=== PATIENT | male | born 1975 | race Caucasian/White ===

== ENCOUNTER 2016-12-06 09:31 | Emergency (ER) | payer MEDICAID ==
[2016-12-06 09:38] VITALS: TEMP 98.6
[2016-12-06] MEDS ORDERED: NS 1,000 ML IV ONE ×2 (09:54→11:28)
[2016-12-06 10:12] LABS: % IMMATURE GRANULYOCYTES 0.6 % (0.0-1.1); ABSOLUTE IMMATURE GRANULOCYTES 0.02 10^3/uL (0.00-0.10); ABSOLUTE NRBC COUNT 0.02 10^3/uL (0-0.01); ADD DIFF? NO; ADD MORPH? NO; ADD SCAN? NO; ATYPICAL LYMPHOCYTE FLAG 0 (0-99); FRAGMENT RBC FLAG 0 (0-99); HEMOGLOBIN 13.2 g/dL (13.7-17.5); LEFT SHIFT FLG 0 (0-99); LIPEMIA HEMOLYSIS FLAG 90 (0-99); MEAN CELL HEMOGLOBIN 37.4 pg (27.9-34.1); MEAN CELL HEMOGLOBIN CONCENTR. 35.7 g/dL (32.4-36.7); MEAN CELL VOLUME 104.8 fL (81.5-99.8); MEAN PLATELET VOLUME 9.3 fL (8.7-11.7); NRBC-AUTO% 0.6 % (0.0-0.2); PLATELET CLUMPS FLAG 0 (0-99); PLATELET COUNT 161 10^3/uL (150-400); RED BLOOD CELL COUNT 3.53 10^6/uL (4.40-6.38); RED CELL DISTRIBUTION WIDTH 13.2 % (11.5-15.2)
--- NOTE | 2016-12-06 10:14 | CPEKG ---
Heart Rate: 91 RR Interval: 659 P-R Interval: 160 QRSD Interval: 88 QT Interval: 364 QTC Interval: 448 P [place]: 44 QRS [place]: 26 T Wave [place]: 36 EKG Severity - ABNORMAL ECG - EKG Impression: SINUS RHYTHM EKG Impression: CONSIDER LEFT VENTRICULAR HYPERTROPHY Electronically Signed By: Ambrosio Jones 06-Dec-2016 13:00:54
--- NOTE | 2016-12-06 10:17 | EDPHY ---
General Narrative: CHIEF COMPLAINT: Multiple complaints HISTORY OF PRESENT ILLNESS: Patient complains of weakness, loss of appetite, shakiness, fatigue, body aches , nausea, cough, runny nose, emotional lability. The symptoms have been present for nearly 2 months. They have been constant duration. He occasionally becomes very aggravated her agitated for no reason. He then becomes tearful. There are no predictable modifying factors for this. He is only attempted Aleve [id number] without improvement. He has had no chest pain. He has had no abdominal pain but he has had some diarrhea. He says that he knows something is wrong. He has not yet been evaluated by anyone. He has no primary care physician. He denies any other significant medical history. No other associated complaints or modifying factors. REVIEW OF SYSTEMS: Ten systems reviewed and are negative unless otherwise noted in the HPI PCP: Currently none SPECIALISTS: Currently none PAST MEDICAL HISTORY: Orthopedic injuries PAST SURGICAL HISTORY: Right metatarsal surgery 2005 SOCIAL HISTORY: One pack per day smoker. Occasional alcohol. Marijuana user FAMILY HISTORY: Noncontributory EXAMINATION General Appearance: Alert, no distress, unkempt Head: normocephalic, atraumatic Eyes: Pupils equal and round, no conjunctival pallor or injection. EOMs intact. ENT, Mouth: edentulous. Mucous membranes mildly dry. Airway is widely patent with midline uvula. No erythema or edema Neck: Normal inspection, supple, non-tender Respiratory: Mild scattered rhonchi. No wheezing. No crackles. No diminishment. No retractions or distress Cardiovascular: Tachycardic rate and regular rhythm. No murmur. Good signs of perfusion distally. Gastrointestinal: Abdomen is soft and nontender no tenderness. No tympany Back: non-tender, no bony abnormalities Neurological: Mild resting tremor. GCS 15. A&O, nonfocal, strength is symmetric in all 4 limbs. Steady gait. Skin: Warm and dry, no rash. No petechiae or purpura Extremities: Nontender, no pedal edema Psychiatric: Mood and affect normal DIFFERENTIAL DIAGNOSES: Including but not limited to pneumonia, dehydration, acute kidney injury, rhabdomyolysis, weakness, demyelinating disease MDM: 9:55 a.m. Multiple vague complaints with no specific finding on examination. He is mildly tachycardic but not hypoxic, not tachypneic, and not hypotensive. He does not meet SIRS criteria. I have ordered laboratory studies, IV fluid, EKG and chest x-ray. He is in no acute distress 11:00 a.m. Multiple minor laboratory abnormalities without any significant, emergent concern. Due to the tremor, weakness and reported emotional lability, I have ordered CT scan of the head to rule out intracranial mass. 11:30 a.m. Contacted by radiologist Dr. Duncan. CT scan of the head reveals atrophy but no acute findings. 11:50 p.m. Multiple minor laboratory abnormalities consistent with alcohol abuse. I have re-evaluated the patient and discussed this with him. He now admits to at least a six-pack a day of alcohol. He is resting comfortably in no acute distress. He does have a mild resting tremor but no evidence of delirium tremens. I recommended daily multi-vitamin have also recommended that the patient be evaluated by case minute to assure that he could follow-up. I do know that he warranted mid the hospital time. Dr. Jones agrees with this plan. Discharged home with instructions to take it daily multi vitamin, increase fluid intake, increase fluid intake, follow up care physician and discussed out cessation in a safe manner. Precautions discussed he and his significant other comfortable this plan. 12:05 p.m. Patient has been visited by catalytic case operator at all. She is attempting to kick in a [facility] for him. 12:20 p.m. Patient has an appointment at 11:00 a.m. at [facility] for follow-up. He is comfortable this plan. He is discharged home stable condition with instructions to follow up with that appointment. ED precautions for worsening symptoms, chest pain. He has a spouse are comfortable this plan. - Diagnostics Imaging Results: Imaging Impressions Chest X-Ray 12/06/16 09:55 Impression: No acute cardiopulmonary features. Head CT 12/06/16 10:58 Impression: Diffuse cortical atrophy. I telephoned results to Jens Josue at 1125 hours. - History Smoking Status: Current every day smoker - Objective Vital Signs: Initial Vital Signs Temperature (C) 98.6 F 12/06/16 09:33 Heart Rate 112 H 12/06/16 09:33 Respiratory Rate 18 12/06/16 09:33 Blood Pressure 149/108 H 12/06/16 09:33 O2 Sat (%) 96 12/06/16 09:33 O2 Delivery Mode Room Air Allergies/Adverse Reactions: No Known Allergies Allergy (Verified 07/28/15 14:45) Home Medications: Medication Instructions Recorded NK [No Known Home Meds] 12/06/16 Laboratory Results: Laboratory Results 12/06/16 10:00 12/06/16 10:00 12/06/16 12/06/16 12/06/16 11:00 10:00 10:00 WBC RBC Hgb Hct MCV MCH MCHC RDW Plt Count MPV Neut % (Auto) Lymph % (Auto) [place] % (Auto) Eos % (Auto) Baso % (Auto) Nucleat RBC Rel Count Absolute Neuts (auto) Absolute Lymphs (auto) Absolute Monos (auto) Absolute Eos (auto) Absolute Basos (auto) Absolute Nucleated RBC Immature Gran % Immature Gran # ESR PT INR APTT Sodium Potassium Chloride Carbon Dioxide Anion Gap BUN Creatinine Estimated GFR Glucose Calcium Total Bilirubin Conjugated Bilirubin Unconjugated Bilirubin AST ALT Alkaline Phosphatase Creatine Kinase CK-MB (CK-2) Fraction CK-MB (CK-2) % Creatine Kinase Interp Troponin I C-Reactive Protein Total Protein Albumin Lipase TSH 1.630 uIU/mL uIU/mL (0.465-4.680) Urine Color YELLOW Urine Appearance CLEAR Urine pH 7.0 (5.0-7.5) Ur Specific [place] 1.020 (1.002-1.030) Urine Protein 1+ H (NEGATIVE) Urine Ketones NEGATIVE (NEGATIVE) Urine Blood NEGATIVE (NEGATIVE) Urine Nitrate NEGATIVE (NEGATIVE) Urine Bilirubin NEGATIVE (NEGATIVE) Urine Urobilinogen NEGATIVE EU EU (0.2-1.0) Ur Leukocyte Esterase NEGATIVE (NEGATIVE) Urine RBC 1-3 /hpf /hpf (0-3) Urine WBC 1-3 /hpf /hpf (0-3) Ur Epithelial Cells Not Reported Urine Mucus TRACE /lpf /lpf (NONE-1+) Urine Glucose NEGATIVE (NEGATIVE) Nasal Influenza A PCR NEGATIVE FOR FLU A (NEGATIVE) Nasal Influenza B PCR NEGATIVE FOR FLU B (NEGATIVE) Urine Opiates Screen NEGATIVE (NEGATIVE) Urine Barbiturates NEGATIVE (NEGATIVE) Ur Phencyclidine Scrn NEGATIVE (NEGATIVE) Ur Amphetamine Screen NEGATIVE (NEGATIVE) U Benzodiazepines Scrn NEGATIVE (NEGATIVE) Urine Cocaine Screen NEGATIVE (NEGATIVE) U Marijuana (THC) Screen NON-NEGATIVE H (NEGATIVE) 10/13/17 10/13/17 10/13/17 10:00 10:00 10:00 WBC 3.27 10^3/uL L 10^3/uL (3.80-9.50) RBC 3.53 10^6/uL L 10^6/uL (4.40-6.38) Hgb 13.2 g/dL L g/dL (13.7-17.5) Hct 37.0 % L % (40.0-51.0) MCV 104.8 fL H fL (81.5-99.8) MCH 37.4 pg H pg (27.9-34.1) MCHC 35.7 g/dL g/dL (32.4-36.7) RDW 13.2 % % (11.5-15.2) Plt Count 161 10^3/uL 10^3/uL (150-400) MPV 9.3 fL fL (8.7-11.7) Neut % (Auto) 39.2 % L % (39.3-74.2) Lymph % (Auto) 46.8 % H % (15.0-45.0) Town[place] % (Auto) 11.6 % % (4.5-13.0) Eos % (Auto) 0.3 % L % (0.6-7.6) Baso % (Auto) 1.5 % % (0.3-1.7) Nucleat RBC Rel Count 0.6 % H % (0.0-0.2) Absolute Neuts (auto) 1.28 10^3/uL L 10^3/uL (1.70-6.50) Absolute Lymphs (auto) 1.53 10^3/uL 10^3/uL (1.00-3.00) Absolute Monos (auto) 0.38 10^3/uL 10^3/uL (0.30-0.80) Absolute Eos (auto) 0.01 10^3/uL L 10^3/uL (0.03-0.40) Absolute Basos (auto) 0.05 10^3/uL 10^3/uL (0.02-0.10) Absolute Nucleated RBC 0.02 10^3/uL H 10^3/uL (0-0.01) Immature Gran % 0.6 % % (0.0-1.1) Immature Gran # 0.02 10^3/uL 10^3/uL (0.00-0.10) ESR 38 MM/HR H MM/HR (0-15) PT 13.9 SEC SEC (12.0-15.0) INR 1.08 (0.83-1.16) APTT 30.7 SEC SEC (23.0-38.0) Sodium 144 mEq/L mEq/L (134-144) Potassium 4.1 mEq/L mEq/L (3.5-5.2) Chloride 104 mEq/L mEq/L (97-110) Carbon Dioxide 23 mEq/l mEq/l (22-31) Anion Gap 17 mEq/L H mEq/L (8-16) BUN 6 mg/dL L mg/dL (7-23) Creatinine 0.5 mg/dL L mg/dL (0.7-1.3) Estimated GFR > 60 Glucose 94 mg/dL mg/dL (70-100) Calcium 9.3 mg/dL mg/dL (8.5-10.4) Total Bilirubin 0.4 mg/dL mg/dL (0.1-1.4) Conjugated Bilirubin 0.3 mg/dL mg/dL (0.0-0.5) Unconjugated Bilirubin 0.1 mg/dL mg/dL (0.0-1.1) AST 114 IU/L H IU/L (17-59) ALT 55 IU/L IU/L (21-72) Alkaline Phosphatase 141 IU/L H IU/L (38-126) Creatine Kinase 400 IU/L H IU/L (0-224) CK-MB (CK-2) Fraction 2.11 ng/mL ng/mL (0.00-3.19) CK-MB (CK-2) % 0.5 % % (0.0-4.0) Creatine Kinase Interp NEGATIVE (NEGATIVE) Troponin I < 0.012 ng/mL ng/mL (0.000-0.034) C-Reactive Protein 17.6 mg/L H mg/L (<10.0) Total Protein 7.6 g/dL g/dL (6.3-8.2) Albumin 4.2 g/dL g/dL (3.5-5.0) Lipase 133 IU/L IU/L (23-300) TSH Urine Color Urine Appearance Urine pH Ur Specific [place] Urine Protein Urine Ketones Urine Blood Urine Nitrate Urine Bilirubin Urine Urobilinogen Ur Leukocyte Esterase Urine RBC Urine WBC Ur Epithelial Cells Urine Mucus Urine Glucose Nasal Influenza A PCR Nasal Influenza B PCR Urine Opiates Screen Urine Barbiturates Ur Phencyclidine Scrn Ur Amphetamine Screen U Benzodiazepines Scrn Urine Cocaine Screen U Marijuana (THC) Screen Medications Given: Discontinued Medications Sodium Chloride (Ns) 1,000 mls @ 0 mls/hr IV ONCE ONE; Wide Open PRN Reason: Protocol Stop: 12/06/16 09:55 Last Admin: 12/06/16 10:02 Dose: 1,000 mls Sodium Chloride (Ns) 1,000 mls @ 0 mls/hr IV ONCE ONE; Wide Open PRN Reason: Protocol Stop: 12/06/16 11:29 Last Admin: 12/06/16 11:31 Dose: 1,000 mls Departure - Departure Disposition: Home, Routine, Self-Care Clinical Impression: Chronic anemia Alcohol dependence Qualifiers: Substance use status: with intoxication Complication of substance-induced condition: with unspecified complication Qualified Code(s): F10.229 - Alcohol dependence with intoxication, unspecified Condition: Good Instructions: Abuse of Alcohol (ED), At-Risk Alcohol Use (ED), Anemia (ED), Alcohol Dependence (ED) Additional Instructions: Case Management: You have an appointment with [facility] on December 09 at 11: 10 AM. Please be on time. The [address] [address] Referrals: NONE *PRIMARY CARE P,. [Primary Care Provider] - As per Instructions [facility],. [Clinic] - As per Instructions David Yu MD [Medical Doctor] - As per Instructions
[2016-12-06 10:21] LABS: INR 1.08 (0.83-1.16); PROTIME(PATIENT) 13.9 SEC (12.0-15.0)
[2016-12-06 10:22] VITALS: O2SAT 95
[2016-12-06 10:24] LABS: ALANINE AMINOTRANSFERASE 55 IU/L (21-72); ALBUMIN 4.2 g/dL (3.5-5.0); ALKALINE PHOSPHATASE 141 IU/L (38-126); ANION GAP 17 mEq/L (8-16); ASPARTATE AMINOTRANSFERASE 114 IU/L (17-59); BILIRUBIN,TOTAL 0.4 mg/dL (0.1-1.4); BILIRUBIN-CONJUGATED 0.3 mg/dL (0.0-0.5); BILIRUBIN-UNCONJUGATED 0.1 mg/dL (0.0-1.1); C-REACTIVE PROTEIN 17.6 mg/L (<10.0); CALCIUM 9.3 mg/dL (8.5-10.4); CARBON DIOXIDE 23 mEq/l (22-31); CHLORIDE 104 mEq/L (97-110); CREATININE 0.5 mg/dL (0.7-1.3); GLOMERULAR FILTRATION RATE > 60; GLUCOSE 94 mg/dL (70-100); POTASSIUM 4.1 mEq/L (3.5-5.2); SEDIMENTATION RATE 38 MM/HR (0-15); SODIUM 144 mEq/L (134-144); TOTAL PROTEIN 7.6 g/dL (6.3-8.2)
[2016-12-06 10:27] LABS: APTT 30.7 SEC (23.0-38.0)
[2016-12-06 10:33] LABS: TROPONIN I < 0.012 ng/mL (0.000-0.034)
[2016-12-06 11:01] LABS: CK-MB INTERPRETATION NEGATIVE (NEGATIVE); CREATINE KINASE-MB FRACTION 2.11 ng/mL (0.00-3.19)
[2016-12-06 11:17] LABS: COLOR YELLOW; LEUKOCYTE ESTERASE,URINE NEGATIVE (NEGATIVE); NITRITE,URINE NEGATIVE (NEGATIVE)
[2016-12-06 11:23] LABS: MUCUS TRACE /lpf (NONE-1+)
--- NOTE | 2016-12-06 12:32 | ASMTCMCOM ---
CM Note CM Note Notes: Met with patient to confirm follow up with primary care. Patient states that he has been to [facility] in the past, but that it has been many years. He deinies any other PCP care. I have made patient an appointment at [facility] for Friday, December 09 at 11:40 AM. Patient has been instructed to arrive at appointment at 11:10 AM. The clinic did not have a record of patient in their system and I have faxed ER report and all reports from this visit to Harriet at [facility] . I have informed patient of his appointment and provided address and phone number for the clinic. Patient verbalizes understanding and states that he will follow up with this appointment Date Signed: 12/06/2016 12:32 PM Electronically Signed By:Sofi Deluna RN
[2016-12-06 12:34] VITALS: BP 137/87; PULSE 84; RESP 16
== END 2016-12-06 12:32 | disposition home or self-care (01) ==
DX: D64.9 Anemia, unspecified (principal); F10.229 Alcohol dependence with intoxication, unspecified; F17.200 Nicotine dependence, unspecified, uncomplicated; E86.9 Volume depletion, unspecified
CPT/HCPCS: 80305

== ENCOUNTER 2017-06-16 05:03 | Inpatient (IN) | payer MEDICAID ==
[2017-06-16] MEDS ORDERED: NS 1,000 ML IV ONE (05:09)
--- NOTE | 2017-06-16 05:12 | EDPHY ---
H & P Time Seen by Provider: 06/16/17 05:10 HPI/ROS: HPI CHIEF COMPLAINT: Shortness of breath, trouble breathing HISTORY OF PRESENT ILLNESS: Patient is a 42-year-old male, around 11:00 p.m. last night he started complaining of some sore throat, gurgles some warm water, and had some ice chips and then went to bed. He woke up suddenly around 4:45 a.m. With sudden-onset shortness of breath and rather respiratory distress. 911 was called as he could not breathe they appreciated that he had some wheezing but did not get a room air saturation, they report that he was diaphoretic and having trouble breathing. They placed him on a non-rebreather mask gave him a DuoNeb breathing treatment. Give him a 2nd breathing treatment and [facility]u-Medrol brought him to the emergency room. EMS reports an anxiety component however he was diaphoretic. He reports since giving him a 2nd breathing treatment is feeling better. Upon arrival to the emergency room the patient's main complaint is trouble breathing up in his throat. Is able to handle his own secretions. He is not having stridor. There is no significant swelling on exam. Patient still complains of some throat pain. Denies trauma. Denies fever. EMS Reports much improved since arrival to the emergency room. Past Medical History: Denies significant medical history Past Surgical History: Denies significant surgical history Social History: Daily tobacco use, occasional marijuana. Denies alcohol. Family History: Noncontributory ROS REVIEW OF SYSTEMS: A comprehensive 10 point review of systems is otherwise negative aside from elements mentioned in the history of present illness. Exam Constitutional slightly anxious, nontoxic, triage nursing summary reviewed, vital signs reviewed, awake/alert. Eyes normal conjunctivae and sclera, EOMI, PERRLA. HENT normal inspection, atraumatic, moist mucus membranes, no epistaxis, neck supple/ no meningismus, no raccoon eyes. Respiratory good air movement bilaterally, no stridor, does have somewhat muffled voice. Cardiovascular rate normal, regular rhythm, no murmur, no edema, distal pulses normal. Gastrointestinal soft, non-tender, no rebound, no guarding, normal bowel sounds, no distension, no pulsatile mass. Genitourinary no CVA tenderness. Musculoskeletal no midline vertebral tenderness, full range of motion, no calf swelling, no tenderness of extremities, no meningismus, good pulses, neurovascularly intact. Skin pink, warm, & dry, no rash, skin atraumatic. Neurologic awake, alert and oriented x 3, AAOx3, moves all 4 extremities equally, motor intact, sensory intact, CN II-XII intact, normal cerebellar, normal vision, normal speech. Psychiatric normal mood/affect. Heme/Lymph/Immune no lymphadenopathy. Differential Diagnosis: Includes but is not limited to in a particular order respiratory distress, allergic reaction, anaphylaxis, asthma, reactive airway disease, CHF, pneumonia, epiglottitis Medical Decision Making: Plan for this patient full rn acls, IV establishment, patient feels very anxious, lungs are clear, he is tachypneic, he is not drooling he does have pain when he swallows. I question if he is having trouble breathing from upper airway edema better epiglottitis or RPA or PUMPER BREWERY. Clinically on exam there is no stridor. He is handling secretions okay. Able to swallow. He is speaking to me. We will closely monitor. Will give a dose of epinephrine here in emergency room as well as 10 mg IV Decadron. Closely monitor. Re-evaluation: 0553: Patient back from CT. I did review the patient's CT there is significant airway edema epiglottitis. The patient was moved to ER room 2. Patient has been given a lidocaine and racemic epinephrine neb. As well as Afrin. Sloan scope at bedside. As well as fiberoptic scope. Additionally cried kit at bedside. I asked Dr. Kruger to be present in the emergency room in case of emergency cric. Additionally this time I called ENT for epiglottitis with possible airway compromise. Plan will be for ENT emergent evaluation and LEs the patient declines further. Most likely go to the operating room for awake fiberoptic look. EKG interpretation by me on record in [employer] ([employer]) system. Impression time of EKG 5:53 a.m., sinus tach rate of 111. No acute ischemia. Motion artifact seen. 0611: CT scan of the neck with soft tissues this shows significant inflammation of the epiglottitis, surrounding edema. Airway is patent. 0600: Dr. Rk Rocha at bedside. Seeing evaluated the patient. Plan to go to the operating room for an awake look fiberoptic scope with anesthesia for epiglottitis. 0615AM: Patient remained stable. Able to speak with me. Handling secretions. 0620: Patient going to OR. Stable. Dr. Rocha and anesthesia bedside. Critical Care: Total Critical Care Time Spent Managing this Patient: 80 Minutes. This time was spent Exclusively with this patient. This Care was exclusive of procedures. The Organ System/life at risk was airway, respiratory impending respiratory failure This Patient was in Critical Condition because epiglottitis with airway edema impending respiratory failure. Source: Patient, Family, EMS - Personal History Tetanus Vaccine Date: 2006 - Medical/Surgical History Hx Asthma: No Hx Chronic Respiratory Disease: No Hx Diabetes: No Hx Cardiac Disease: No Hx Renal Disease: No Hx Cirrhosis: No Hx Alcoholism: No Hx HIV/AIDS: No Hx Splenectomy or Spleen Trauma: No Other PMH: R FOOT SURG, R CLAVICLE, - Social History Smoking Status: Current every day smoker Constitutional: Initial Vital Signs Temperature (C) 37.8 C 06/16/17 05:05 Heart Rate 98 06/16/17 05:05 Respiratory Rate 18 06/16/17 05:05 Blood Pressure 149/100 H 06/16/17 05:05 O2 Sat (%) 95 06/16/17 05:05 O2 Delivery Mode Non-Rebreather Mask O2 (L/minute) 15 Allergies/Adverse Reactions: No Known Allergies Allergy (Verified 06/16/17 05:15) Home Medications: Medication Instructions Recorded NK [No Known Home Meds] 12/06/16 Medical Decision Making - Data Points Laboratory Results: Laboratory Results 06/16/17 05:05 06/16/17 05:05 Medications Given: Chlorhexidine Gluconate (Peridex) 15 ml PO Q12@08,20 ARMANDO Stop: 12/13/17 07:59 Last Admin: 06/16/17 20:55 Dose: 15 ml Enoxaparin Sodium (Lovenox) 40 mg SC DAILY ARMANDO Stop: 12/13/17 08:59 Last Admin: 06/16/17 11:13 Dose: 40 mg Ceftriaxone Sodium 2 gm/ (Sterile Water) 20 mls @ 300 mls/hr IV DAILY [facility] PRN Reason: Protocol Stop: 07/16/17 08:59 Last Admin: 06/16/17 09:38 Dose: 20 mls Famotidine/Sodium Chloride (Pepcid 20 Mg (Premix)) 50 mls @ 200 mls/hr IV Q12HRS ARMANDO Stop: 12/13/17 08:59 Last Admin: 06/16/17 20:48 Dose: 50 mls Propofol (Diprivan 10 Mg/Ml (Premix)) 100 mls @ 0 mls/hr IV CONT ARMANDO; Per Protocol PRN Reason: Protocol Stop: 12/13/17 07:59 Last Admin: 06/17/17 02:09 Dose: 100 mls Fentanyl 1,000 mcg/ Sodium (Chloride) 100 mls @ 0 mls/hr IV CONT ARMANDO; Per Protocol PRN Reason: Protocol Stop: 06/26/17 08:54 Last Admin: 06/16/17 09:39 Dose: 100 mls Dextrose/Lactated Ringer's (D5w Lr) 1,000 mls @ 100 mls/hr IV CONT ARMANDO Stop: 12/13/17 13:44 Last Admin: 06/16/17 21:56 Dose: 1,000 mls Vancomycin HCl 1.25 gm/ Sodium (Chloride) 250 mls @ 166.667 mls/hr IV Q12H ARMANDO Stop: 07/16/17 18:59 Last Admin: 06/16/17 18:36 Dose: 250 mls Lorazepam (Ativan Injection) 1 - 2 mg IVP Q2HRS PRN PRN Reason: Anxiety, Unable to Take PO Stop: 12/13/17 07:16 Last Admin: 06/17/17 04:13 Dose: 2 mg Discontinued Medications Dexamethasone (Decadron Injection) 10 mg IVP EDNOW ONE Stop: 06/16/17 05:18 Last Admin: 06/16/17 05:39 Dose: 10 mg Epinephrine (S-2) 0.5 ml IH EDNOW ONE Stop: 06/16/17 05:56 Last Admin: 06/16/17 05:55 Dose: 0.5 ml Epinephrine (S-2) 0.5 ml IH EDNOW ONE Stop: 06/16/17 06:17 Last Admin: 06/16/17 06:17 Dose: 0.5 ml Epinephrine HCl (Epinephrine) 0.3 mg IM EDNOW ONE Stop: 06/16/17 05:18 Last Admin: 06/16/17 05:39 Dose: 0.3 mg Sodium Chloride (Ns) 1,000 mls @ 0 mls/hr IV EDNOW ONE; Wide Open PRN Reason: Protocol Stop: 06/16/17 05:10 Last Admin: 06/16/17 05:29 Dose: 1,000 mls Ceftriaxone Sodium 2 gm/ (Sterile Water) 20 mls @ 300 mls/hr IV EDNOW ONE PRN Reason: Protocol Stop: 06/16/17 05:39 Last Admin: 06/16/17 05:59 Dose: 20 mls Vancomycin HCl 1.4 gm/ Sodium (Chloride) 250 mls @ 166.667 mls/hr IV EDNOW ONE Stop: 06/16/17 08:29 Last Admin: 06/16/17 07:30 Dose: 250 mls Lidocaine HCl (Lidocaine Hcl 1%) 20 ml NB EDNOW ONE Stop: 06/16/17 05:52 Last Admin: 06/16/17 06:00 Dose: 20 ml Lorazepam (Ativan Injection) 0.5 - 1 mg IVP Q8HRS PRN PRN Reason: Anxiety, Unable to Take PO Stop: 12/13/17 07:16 Last Admin: 06/16/17 12:19 Dose: 1 mg Lorazepam (Ativan Injection) 5 mg IVP ONCE ONE Stop: 06/16/17 09:46 Last Admin: 06/16/17 10:00 Dose: 2 mg Oxymetazoline HCl (Afrin Nasal [place]) 2 sprays EACHNARE EDNOW ONE Stop: 06/16/17 05:59 Last Admin: 06/16/17 05:59 Dose: 1 spray Oxymetazoline HCl (Afrin Nasal [place]) Confirm Administered Dose 30 sprays .ROUTE .STK-MED ONE Stop: 06/16/17 06:27 Last Admin: 06/16/17 11:16 Dose: Not Given Departure - Departure Disposition: [facility] Inpatient Acute Clinical Impression: Epiglottitis Condition: Critical
[2017-06-16] MEDS ORDERED: DEXAMETHASONE 10 MG/ML VIAL IVP ONE (05:17)
[2017-06-16 05:23] LABS: PLATELET COUNT 224 10^3/uL (150-400)
[2017-06-16] MEDS ORDERED: IOPAMIDOL (ISOVUE-300) 100 ML BTL ONE (05:24)
[2017-06-16 05:32] LABS: INR 0.96 (0.83-1.16)
[2017-06-16] MEDS ORDERED: cefTRIAXone 2 GM in STERILE WATER INJ 20 ML IV ONE (05:36)
[2017-06-16] MEDS ORDERED: VANCOMYCIN 2 GM in NS 500 ML IV ONE (05:36)
[2017-06-16] MEDS ORDERED: DEXAMETHASONE 4 MG/ML VIAL ONE (05:38)
[2017-06-16] MEDS ORDERED: DEXAMETHASONE 10 MG/ML VIAL ONE (05:38)
[2017-06-16] MEDS ORDERED: KETAMINE 200 MG/20 ML VIAL ONE ×2 (05:38→06:27)
[2017-06-16] MEDS ORDERED: LIDOCAINE 2% 5 ML SDV ONE ×2 (05:50→05:55)
[2017-06-16] MEDS ORDERED: LIDOCAINE 1% *Not for Epidural 20 ML MDV NB ONE (05:51)
[2017-06-16] MEDS ORDERED: EPINEPHrine RACEMIC INH 0.5 ML DEYVIAL IH ONE ×3 (05:52→06:16)
--- NOTE | 2017-06-16 05:55 | CPEKG ---
Heart Rate: 111 RR Interval: 541 P-R Interval: 152 QRSD Interval: 86 QT Interval: 336 QTC Interval: 457 P [place]: 56 QRS [place]: 15 T Wave [place]: 43 EKG Severity - BORDERLINE ECG - EKG Impression: SINUS TACHYCARDIA EKG Impression: PROBABLE LEFT ATRIAL ABNORMALITY EKG Impression: BORDERLINE INFERIOR Q WAVES Electronically Signed By: Ousmane Terrell 16-Jun-2017 07:18:38
[2017-06-16] MEDS ORDERED: cefTRIAXone 1 GM/DEXTROSE 1 GM/50 ML BAG IV ONE (05:56)
[2017-06-16] MEDS ORDERED: OXYMETAZOLINE 30 ML NASAL SPRAY ONE ×2 (05:57→06:26)
[2017-06-16] MEDS ORDERED: OXYMETAZOLINE 30 ML NASAL SPRAY EACHNARE ONE (05:58)
[2017-06-16] MEDS ORDERED: PROPOFOL 200 MG/20 ML VIAL ONE (06:27)
[2017-06-16] MEDS ORDERED: PROPOFOL/EMULSION 500 MG/50 ML BOTTLE IV ONE (06:27)
[2017-06-16] MEDS ORDERED: ATROPINE SULFATE 1 MG/ML VIAL ONE (06:27)
[2017-06-16] MEDS ORDERED: MIDAZOLAM 2 MG/2 ML VIAL ONE (06:33)
[2017-06-16] MEDS ORDERED: VANCOMYCIN 1.4 GM in NS 250 ML IV ONE (07:00)
[2017-06-16] MEDS: PROPOFOL/EMULSION 100 ML IV SCH ×4 (07:00→21:00)
--- NOTE | 2017-06-16 07:07 | POSTOPPROG ---
Post Op Note Date of Operation: 06/16/17 Surgeon: Rk Rocha Anesthesiologist: Neo Anesthesia: GET(General Endotracheal) Pre-op Diagnosis: Epiglottitis, paratracheal/paralaryngeal swelling Post-op Diagnosis: Epiglottitis, paratracheal/paralaryngeal swelling Indication: Epiglottitis, paratracheal/paralaryngeal swelling Procedure: Awake fiberoptic nasal intubation Findings: Epiglottitis, paratracheal/paralaryngeal swelling Inf/Abcess present in the surg proc area at time of surgery?: Yes Depth: Organ Space EBL: Minimal
--- NOTE | 2017-06-16 07:15 | PDANEPAE ---
ANE History of Present Illness Patient presents in Extremis with respiratory failure ANE Past Medical History - Pulmonary History Hx Oxygen in Use at Home: No - Endocrine History Hx Diabetes: No ANE Review of Systems Review of Systems: ANE Patient History - Allergies Allergies/Adverse Reactions: No Known Allergies Allergy (Verified 06/16/17 05:15) - Home Medications Home medications: home medication list seen and reviewed Home Medications: NK [No Known Home Meds] 12/06/16 [Last Taken Unknown] - Smoking Hx Smoking Status: Current every day smoker ANE Labs/Vital Signs - Labs Result Diagrams: 06/16/17 05:05 06/16/17 05:05 - Vital Signs Blood Pressure: 151/99 Heart Rate: 120 Respiratory Rate: 22 O2 Sat (%): 100 Height: 172.72 cm Weight: 70.307 kg ANE Physical Exam - Airway Neck exam: FROM Mallampati Score: Unable to assesss - Pulmonary Pulmonary: respiratory distress - Cardiovascular Cardiovascular: regular rate and rhythym - ASA Status ASA Status: I, E ANE Anesthesia Plan Anesthesia Plan: general endotracheal anesthesia (To OR for Emergency intubation )
--- NOTE | 2017-06-16 07:15 | POSTANESTH ---
Post Anesthetic Evaluation Cardiovascular Status: Similar to Pre-Op Cond Respiratory Status: Other, See Comment Level of Consciousness/Mental Status: Unconscious Pain Control: Adequate, Prn Tx Ordered Nausea/Vomiting Control: Adequate, Prn Tx Ordered Complications Possibly Related to Anesthesia: None Noted (INtubated in OR then transported to ICU. No complications)
[2017-06-16] MEDS ORDERED: ACETAMINOPHEN 650 MG SUPP PR PRN (07:17)
[2017-06-16] MEDS ORDERED: ONDANSETRON 4 MG/2 ML VIAL IVP PRN (07:17)
[2017-06-16] MEDS ORDERED: LORazepam 2 MG/ML INJ IVP PRN (07:17)
[2017-06-16] MEDS ORDERED: NS 1,000 ML IV SCH (07:30)
--- NOTE | 2017-06-16 07:33 | GOP ---
[f rep st] OPERATIVE REPORT DATE OF OPERATION: 06/16/2017 SURGEON: Rk Rocha MD ANESTHESIA: Topical. PREOPERATIVE DIAGNOSIS: Epiglottitis with peritracheal and paralaryngeal swelling. POSTOPERATIVE DIAGNOSIS: Epiglottitis with peritracheal and paralaryngeal swelling. PROCEDURE PERFORMED: Fiberoptic nasal intubation. FINDINGS: Epiglottitis with laryngeal swelling compromising airway. SPECIMENS: None. INDICATIONS: The patient was seen in the emergency department in extremis with severe difficulty gerardo athing. CT scan revealed epiglottitis with peritracheal and paralaryngeal swelling. He was determin ed to be an appropriate candidate for the above-stated procedure. The risks, benefits, and alternati ves to the procedure were explained at length to the patient and his , who signed consent for him given his condition. DESCRIPTION OF PROCEDURE: Patient was brought to the operating room by Anesthesiology and placed upr ight on the operating table. He was receiving racemic epi and oxygen through mask. His nasal cavity was topically anesthetized with lidocaine and Afrin nasal spray. He had been pretreated with lidoca ine nebulizer. With the patient sitting awake and Anesthesia prepared to sedate the patient, the fib eroptic laryngoscope was placed through the left nasal cavity and directed through the nasopharynx in to the posterior pharynx. The thickened epiglottis was visualized, and the scope was able to be pass ed through this. The vocal cords were visualized, and the scope was able to thread between them. At this point, the endotracheal tube was passed along the scope through the nasal cavity and into the a irway. The tip was visualized above the mayank. The cuff was inflated and Anesthesia sedated the pa tient. He was then transferred intubated to the surgical ICU. The patient tolerated the procedure r easonably well. COMPLICATIONS: None. /[id number]/MODL
[2017-06-16] MEDS ORDERED: fentaNYL/NACL 100 ML IV SCH (08:00)
--- NOTE | 2017-06-16 08:03 | GCON ---
[f rep st] CONSULTATION ENT CONSULTATION CHIEF COMPLAINT: Epiglottitis with paralaryngeal and peritracheal swelling. HISTORY OF PRESENT ILLNESS: The patient is a 42-year-old male who had some complaints of mild sore t hroat starting last night at 2300 hours. The patient awoke suddenly with severe shortness of breath and respiratory distress. He was brought to the emergency room by EMS and was found to have difficul ty with breathing, diaphoresis, and stridor. He was sent for a CT scan of the neck which revealed ai rway swelling. I reviewed the CT scans myself and agree that there was evidence of epiglottitis, par alaryngeal and peritracheal swelling. No evidence of abscess. On seeing the patient in the ER, he w as significantly stridorous with expiratory wheeze as well. By report, he had been saturating at 80% on room air, but was then able to saturate at 100% on oxygen on a non-rebreather. He had been given racemic epinephrine and steroids. REVIEW OF SYSTEMS: Negative but for that which is reported above. PAST MEDICAL HISTORY: Denies. PAST SURGICAL HISTORY: Denies. SOCIAL HISTORY: Daily tobacco, occasional marijuana. Denies alcohol. FAMILY HISTORY: Noncontributory. PHYSICAL EXAM: VITAL SIGNS: Blood pressure 154/103 with a heart rate of 120, respiratory rate of 22 , O2 saturation 100% on non-rebreather. Notably, patient was switched to Sb ox. GENERAL: Alert, interactive, severe respiratory distress. Biphasic stridor. HEAD AND FACE: Normocephalic, atraumat ic with generally symmetric facial features. Significantly diaphoretic. EARS: Bilateral pinnae and canals unremarkable and no evidence of otorrhea. EYES: EOMI. NOSE: Anterior rhinoscopy with midl ine septum and no evidence of significant turbinate hypertrophy. No evidence of purulence. ORAL CAV ITY AND OROPHARYNX: Unremarkable with age-appropriate dentition. NECK: Supple without palpable mas s or adenopathy. ASSESSMENT: A 42-year-old male with biphasic stridor and evidence of epiglottitis, paralaryngeal, an d peritracheal swelling on CT. Given his history and findings, he was determined to be an appropriat e candidate for intubation versus cricothyroidotomy versus tracheostomy. The risks, benefits, and al ternatives to these procedures were explained at length to the patient and his who was present. They stated they understood and agreed. The patient was expeditiously taken to the operating room. /[id number]/MODL
[2017-06-16] MEDS ORDERED: NARCOTIC DRIP BAG-TOTAL ALL TYPES IV PRN (08:55)
--- NOTE | 2017-06-16 09:08 | GHP ---
[f rep st] HISTORY AND PHYSICAL DATE OF ADMISSION: 06/16/2017 SOURCE: Patient is currently intubated, seen at bedside. I briefly spoke to his . Case discuss ed with ED provider and ENT. EMR was reviewed. CHIEF COMPLAINT: Shortness of breath, sore throat. HISTORY OF PRESENT ILLNESS: This is a 42-year-old gentleman with past medical history significant fo r tobacco and alcohol use who presents to the emergency department with complaints of approximately 6 hours of sore throat and acute shortness of breath. Approximately 11 p.m., patient reported to his that he was having some sore throat and thought maybe he was coming down with strep throat. No known sick contacts, per the . Possibly, patient had some exposures doing some outdoor work, but otherwise was feeling well. Approximately just before 5 o'clock, patient woke up suddenly complaini ng of severe shortness of breath. His called EMS, as patient appeared diaphoretic and acutely i ll. EMS presented, and patient was in acute respiratory distress. No stridor. He did receive nebul izers and steroids en route. Did appear to be anxious, but was diaphoretic. In the emergency depart ment, patient continued to have increased dyspnea. Chest x-ray was nonrevealing for any acute infilt rates. Patient was taken for CT which was significant for swelling and epiglottitis with significant subglottic mucosal edema and tracheal narrowing. ENT and Anesthesia were called urgently, and savanna otledo taken emergently to the OR for fiberoptic intubation. Patient was successfully nasally intubated and transferred to the ICU. Patient had received Rocephin in the emergency department. He is curren tly having vancomycin hung at bedside. Blood cultures were drawn after the dose of Rocephin. Fausto gaitan is requiring increasing doses of sedation, is intermittently agitated. REVIEW OF SYSTEMS: Unable to obtain secondary to patient's intubated status. ALLERGIES: No known drug allergies. PAST MEDICAL HISTORY: None. PAST SURGICAL HISTORY: Right foot and right clavicle repairs. FAMILY HISTORY: Unable to obtain at this time. Patient is intubated. SOCIAL HISTORY: Patient smokes tobacco, occasional marijuana, as well as regular alcohol. CODE STATUS: Full. PHYSICAL EXAMINATION: VITAL SIGNS: Upon arrival to the emergency department, blood pressure 149/100 , heart rate 98, O2 sat 95% on room air with temperature 37.8. Vitals currently, in the unit, blood pressure is 151/99, heart rate in the 120s, respiratory rate 22, O2 sat 100% on vent. GENERAL: No a cute distress. Patient is sedated, intermittently agitated with any kind of movement, but goes back to sleep. HEAD: Normocephalic, atraumatic. EYES: Pupils are pinpoint and with decreased reactivit y to light, but symmetric. No scleral icterus, conjunctival injection. ENT: Patient is intubated. Mucous membranes appear slightly dry. NECK: Deferred. CV: Tachycardic. Slightly distant heart s ounds due to vent noises. Unable to appreciate any murmurs, rubs, or gallops. RESPIRATORY: Lungs o verall with good air movement. Vent sounds. No rhonchi or wheezing. ABDOMEN: Positive bowel sound s. Soft. No apparent distress with palpation. Nondistended. : No Powell in place. Nondistended bladder. EXTREMITIES: No cyanosis, clubbing, or edema appreciated. NEURO: Patient is sedated, in termittently agitated. PSYCHIATRIC: Same as above. LABORATORY DATA: WBC 7.44, H and H are 16.4 and 48.6, MCV of 111.7, platelet count is 224, no bands. PT is 13.0, INR 0.96, PTT is 23.6. CO2 21, anion gap 22, creatinine 0.7, BUN 8, glucose 192, calcium 10.1, magnesium 2.1. Troponin is n egative. BTNP is Alcohol 18. Chest x-ray: Image reviewed myself. Initial report is still pending. Clear. Patient with tracheal narrowing, bubble sign. CT neck: Image and preliminary radiology report reviewed. Swollen epiglot tis with significant subglottic mucosal edema, tracheal narrowing. EKG: Reviewed myself, showing sinus tachycardia, no acute ST changes, QTc 457. ASSESSMENT AND PLAN: 42-year-old gentleman with history tobacco and alcohol who presents with sudden onset of dyspnea and several hours of shortness of breath. 1. Epiglottitis. Patient was taken emergently to the operating room, and was successfully nasally i ntubated with assistance of Ear, Nose, and Throat and Anesthesiology. Patient has been transferred t o the intensive care unit, and currently on ventilator and sedated. Patient did receive Rocephin ruel or to intubation, and vancomycin is in progress. Infectious Disease will be consulted, as well as itical Care Pulmonology. Blood cultures have been ordered, lactate. 2. Acute respiratory failure. Intubated, as above. 3. Hyperglycemia, likely related to patient's recent dosing of steroids prior to arrival in the [facility] department en route. No history of diabetes. Will continue to monitor. No need for insulin a t this time. 4. Macrocytosis, likely related to patient's reported history of strong alcohol consumption. 5. Tobacco dependence. Cessation will be encouraged whenever patient is extubated. Will consider n icotine patch p.r.n. 6. Fluid, electrolyte, nutrition. Patient will be given some IV fluids for supplementation. Electr olytes will be monitored, replaced if needed. He will be n.p.o. at this time. 7. Prophylaxis: Sequential compression devices, Lovenox, and famotidine. CODE STATUS: Full. DISPOSITION: Patient has been admitted to inpatient status in the ICU. He is critically ill, requir ing ventilatory support. Anticipate greater than 2-midnight stay. CONSULTATIONS: ENT, Anesthesiology, Crit Care, ID. /[id number]/MODL
[2017-06-16] MEDS: cefTRIAXone 2 GM in STERILE WATER INJ 20 ML IV SCH (09:38)
[2017-06-16] MEDS ORDERED: LORazepam 2 MG/ML INJ IVP ONE (09:45)
[2017-06-16] MEDS: CHLORHEXIDINE GLUCONATE 15 ML UDL PO SCH ×2 (09:48→20:55)
--- NOTE | 2017-06-16 09:50 | PDMN ---
Medical Necessity Medical necessity: est los>2mn for epiglottitis, acute resp failure, and hyperglycemia; admit to ICU, taken emergently to OR for nasal intubation, intubated and sedated, requires IV abx, follow cx's, ID & critical care pulmonology consults; per order and H&P 06/16/17
[2017-06-16] MEDS: FAMOTIDINE 20 MG/NACL 50 ML IV SCH ×2 (11:13→20:48)
[2017-06-16] MEDS: ENOXAPARIN 40 MG/0.4 ML SYR SC SCH (11:13)
--- NOTE | 2017-06-16 14:14 | GCON ---
[f rep st] CONSULTATION PULMONARY/CRITICAL CARE CONSULTATION DATE OF CONSULTATION: 06/16/2017 REFERRING PHYSICIAN: Sherita Ashford MD REASON FOR REFERRAL: Evaluation and management of respiratory failure and epiglottitis. HISTORY OF PRESENT ILLNESS: The patient is a 42-year-old male with a history of tobacco and alcohol abuse who was in his usual state of good health when at about 11 o'clock last night he reported that he was developing a sore throat. He woke up with marked shortness of breath and EMS was called. He had acute respiratory distress without stridor. He received steroids and nebulized bronchodilators. A CT scan suggested epiglottitis with subglottic mucosal edema and tracheal narrowing. ENT and Anesthesia were called, and the patient was taken emergently to the operating room for fiberoptic intubation. He was successfully intubated and started on antibiotics, as well as sedation. PAST MEDICAL HISTORY: None. MEDICATIONS: None. ALLERGIES: None. SOCIAL HISTORY: The patient smokes tobacco, uses marijuana, and drinks alcohol most days, sometimes "bingeing." REVIEW OF SYSTEMS: Unobtainable. PHYSICAL EXAMINATION: GENERAL: The patient is intubated and sedated. VITAL SIGNS: Blood pressure is 128/99 with a heart rate of 85. He has been afebrile since hospitalization. HEENT: Normocephalic and atraumatic. No icterus. NECK : No JVD. Trachea is midline. CHEST: Clear to auscultation. CARDIAC: Regular rate and rhythm without murmur. ABDOMEN: Soft, nontender. Bowel sounds are present. EXTREMITIES: No clubbing, cyanosis, or edema. NEURO: Sedated, no gross motor weakness. LABORATORY DATA: Chemistry group is remarkable for a glucose of 206. A carbon dioxide level was 21 with an anion gap of 22. BNP is 79. White blood count is 7.4 with a hemoglobin of 18.0. An MCV is 111.7. An arterial blood gas showed a pH of 7.41 with a pO2 of 125, CO2 of 36, and a bicarbonate of 23 with an oxygen saturation of 99% on IMV with a rate of 14, tidal volume of 500, and PEEP of 5. Lactate level is 1.0. Alcohol level was 18 at admission. IMAGING STUDIES: CT scan of the neck shows thickening of the epiglottis and the tissues just below this and above the vocal cords. There is no tracheal stenosis or thickening. Images were reviewed by me. ASSESSMENT: 1. Epiglottitis. The patient had acute onset of symptoms without any sick contacts. He is appropriately being treated with ceftriaxone and vancomycin, and his airway has been managed with an endotracheal tube placed by Dr. Rocha. 2. Respiratory failure. The patient is currently stable on a ventilator with sedation. His gas exchange is good. He was intubated for airway protection. 3. Macrocytosis. This may be on the basis of the patient's alcohol abuse. 4. Agitation. This is likely due to alcohol withdrawal. The patient was on high-dose propofol and some fentanyl as well and still quite agitated. He is now improved with Precedex and a dose of Ativan. 5. Widened anion gap. The patient has a fairly wide anion gap at 22, but just a mild metabolic acidosis on his chemistry group with a normal pH and bicarbonate on his arterial blood gas. His lactate was normal. The most likely cause of this would have been some mild ketosis related to fasting state. This appears to have resolved based on his arterial blood gas. 6. History of alcohol abuse. 7. History of smoking. RECOMMENDATIONS: 1. Continue empiric antibiotics. 2. We will check a respiratory viral panel. 3. Continue intubation/mechanical ventilation for at least 24 to 48 hours with reassessment by ENT to determine when extubation would be appropriate. 4. Continue to observe for alcohol withdrawal and use benzodiazepines p.r.n. /[id number]/MODL MTDD
[2017-06-16] MEDS: LORazepam 2 MG/ML INJ IVP PRN ×3 (15:02→21:56)
[2017-06-16] MEDS: VANCOMYCIN 1.25 GM in NS 250 ML IV SCH (18:36)
[2017-06-16] MEDS: D5W LR 1,000 ML IV SCH (21:56)
[2017-06-17] MEDS: LORazepam 2 MG/ML INJ IVP PRN ×5 (00:22→22:33)
[2017-06-17] MEDS: PROPOFOL/EMULSION 100 ML IV SCH ×4 (02:09→23:16)
[2017-06-17] MEDS ORDERED: cefTRIAXone 2 GM in STERILE WATER INJ 20 ML IV SCH (05:00)
[2017-06-17 05:06] LABS: PLATELET COUNT 160 10^3/uL (150-400)
[2017-06-17] MEDS: VANCOMYCIN 1.25 GM in NS 250 ML IV SCH ×2 (07:45→19:58)
[2017-06-17] MEDS: FAMOTIDINE 20 MG/NACL 50 ML IV SCH ×2 (07:45→22:35)
[2017-06-17] MEDS: ENOXAPARIN 40 MG/0.4 ML SYR SC SCH (07:45)
[2017-06-17] MEDS: CHLORHEXIDINE GLUCONATE 15 ML UDL PO SCH ×2 (07:47→20:14)
[2017-06-17] MEDS: D5W LR 1,000 ML IV SCH ×2 (07:47→19:48)
[2017-06-17] MEDS: cefTRIAXone 2 GM in STERILE WATER INJ 20 ML IV SCH (09:42)
[2017-06-17] MEDS: DEXMEDETOMIDINE IN 0.9 % NACL 100 ML IV SCH ×2 (09:57→17:06)
--- NOTE | 2017-06-17 10:00 | HOSPPROG ---
Hospitalist Progress Note Assessment/Plan: DIAGNOSES: -acute epiglottitis, severe requiring intubation and mechanical ventilation -acute respiratory failure due to above -acute alcohol withdrawal syndrome requiring high doses of sedation medication -severe macrocytosis, likely nutritional and alcohol and liver related -high likelihood of vitamin deficiencies including thiamin Seen by me today on hospitalist rounds and also on multidisciplinary rounds Reviewed in detail with Dr. Terence Guardado PLANS: -continue respiratory supportive care with intubation mechanical ventilation -continue steroids and antibiotics -will review with ENT, suspect that they will recommend re-endoscoping tomorrow -continue management of alcohol withdrawal, but at this time would add Precedex and increase that to significant dose decreasing dosing of propofol and Ativan the latter of which could be aggravating the situation with disinhibition -continue careful restraints to avoid patient self extubation, and reviewed this in detail with the staff -I have added thiamin replacement due to his alcohol use -eventually he will need alcohol counseling and recommendations for rehabilitation SUBJECTIVE: Patient is currently sedated and not at all conversant or responding to voice Per the nursing staff he has been quite agitated and requiring frequent doses of IV Ativan 2 mg in the addition to propofol he is receiving No other acute changes per nursing OBJECTIVE Vitals reviewed: Stable without fever Construction Superintendent, my review: Sinus rhythm Ventilator: At this point he is doing well on SIMV mostly breathing prevent on heavy sedation, however intermittently he becomes agitated and is tachypneic as high as 24 breaths per minute over the vent Exam: Heavily sedated, however still agitated squirming and writhing in the bed fair bit particularly with any examination skin warm dry color ok resps not labored lungs clear BSs heart regular abd soft nondistended nontender, bowel sounds present limbs warm, no edema iv site ok Laboratory data: White blood cell count has increased, likely at least partly due to steroid Hemoglobin decreased from 16-12, suspect largely delusional Remains severely macro psychotic Chemistries overall stable today Microbiology data: All cultures and other studies negative so far Chest x-ray today, my interpretation of images: Some density at the right lower lobe could be atelectasis or infiltrate from aspiration ET tube in good position Objective: Vital Signs Temp Pulse Resp BP Pulse Ox 36.8 C 71 14 113/70 99 06/17/17 06:00 06/17/17 09:00 06/17/17 09:00 06/17/17 09:00 06/17/17 09:00 Microbiology 06/16/17 16:30 Respiratory Panel (PCR) - Final Nasal, Sinus - Swab No Organism Detected Laboratory Results 06/17/17 04:19 06/17/17 04:19 06/16/17 06/17/17 06/18/17 06:59 06:59 06:59 Intake Total 2987.0 Output Total 461 Balance 2526.0 PT 13.0 SEC (12.0-15.0) 06/16/17 05:05 INR 0.96 (0.83-1.16) 06/16/17 05:05 - Time Spent With Patient Time Spent with Patient: greater than 35 minutes Time Spent with Patient: Greater than 35 minutes spent on this patients care, greater than 50% of time spent counseling, educating, and coordinating care regarding the above mentioned plan. ICD10 Worksheet Patient Problems: Problems Problem Status Onset Epiglottitis Acute Toe fracture, right Acute
--- NOTE | 2017-06-17 10:03 | ASMTCMCOM ---
CM Note CM Note Notes: 42yr old male admitted for Respiratory Failure, SOB, Epiglotitis. Patient was vented. He has a Hx of substance use: smoker, ETOH, THC. Patient lives with his . CM to follow for possible discharge needs. Date Signed: 06/17/2017 10:02 AM Electronically Signed By:Mary Lugo LCSW
[2017-06-17] MEDS: THIAMINE HCL 100 MG in NS 100 ML IV SCH (10:44)
--- NOTE | 2017-06-17 11:14 | PDINTPN ---
[employer] Progress Note Assessment/Plan: Assessment: Epiglottitis: Now s/p 24 hours of CTX/Vanco and steroids. Respiratory status stable on vent. Agitation: Suspect EtOH withdrawal, with severe agitation and macrocytosis. Responded to Ativan, in addition to Propofol and fentanyl. Respiratory Failure: Intubated for airway protection. Good gas exchange on vent. Probable EtOH abuse: Now with signs of withdrawal Macrocytosis Plan: Continue CTX/Vanco/steroids. Advance ETT. Reassess by ENT to determine timing of extubation. Add Precedex to current sedation Check B12, Folate levels 06/17/17 11:20 Subjective: Intubated, sedated Objective: Vital Signs Temp Pulse Resp BP Pulse Ox 36.8 C 79 14 112/69 98 06/17/17 06:00 06/17/17 10:00 06/17/17 10:00 06/17/17 10:00 06/17/17 10:00 Microbiology 06/16/17 16:30 Respiratory Panel (PCR) - Final Nasal, Sinus - Swab No Organism Detected Laboratory Results 06/17/17 04:19 06/17/17 04:19 06/16/17 06/17/17 06/18/17 05:59 05:59 05:59 Intake Total 2987.0 Output Total 461 Balance 2526.0 PT 13.0 SEC (12.0-15.0) 06/16/17 05:05 INR 0.96 (0.83-1.16) 06/16/17 05:05 Laboratory Tests 06/17/17 05:20 pCO2 39 H pO2 90 H ABG pH 7.37 O2 Concentration % 40 Actual Respiration Rate 14 Tidal Volume 500 CXR: Minimal atelectasis. ETT 6 cm above mayank. Images reviewed. Physical Exam - Physical Exam General Appearance: alert, no apparent distress EENT: normal ENT inspection Neck: normal inspection Respiratory: lungs clear, normal breath sounds Cardiac/Chest: regular rate, rhythm, No edema Abdomen: normal bowel sounds, non-tender Skin: normal color, warm/dry Extremities: normal inspection Neuro/Psych: alert, normal mood/affect, oriented x 3 ICD10 Worksheet Patient Problems: Problems Problem Status Onset Epiglottitis Acute Toe fracture, right Acute
--- NOTE | 2017-06-17 19:01 | GCON ---
[f rep st] CONSULTATION DATE OF CONSULTATION: 06/17/2017 REQUESTING PHYSICIAN: Sherita Ashford MD REASON FOR CONSULTATION: Epiglottitis. HISTORY OF PRESENT ILLNESS: The patient is a 42-year-old male with a past medical history of tobacco and alcohol abuse, whom I am asked to see in consultation for epiglottitis. The patient is currentl y intubated and sedated and therefore the history is obtained through the patient's medical record. The patient was noted to complain of sore throat yesterday with associated shortness of breath. Subs equently, his shortness of breath progressed, leading to concern from his resulting in a call to EMS. Upon arrival, he was noted to be in acute respiratory distress and treated with nebulizers and corticosteroids. Upon arrival to the hospital the patient had a CT scan of the neck performed which showed thickening of the epiglottis with submucosal edema and secondary airway narrowing, consistent with epiglottitis. The patient was seen by ENT and noted to have the presence of stridor with progr essive respiratory distress. Therefore, he was taken to the operating room yesterday for airway comp romise at which point in time he was able to be nasally intubated. The patient was noted to have a t hickened epiglottis at time of intubation. The patient is now receiving empiric therapy with vancomy jolly and ceftriaxone, as well as concomitant methylprednisolone. Post hospitalization, the patient tolliver s had increasing agitation with concern for alcohol withdrawal, which is now being treated with benzo diazepines, propofol, and Precedex. Blood cultures x2 are no growth to date. A respiratory pathogen panel PCR shows no organisms. Given the above findings, I am now asked to assist in his ongoing man agement. PAST MEDICAL HISTORY: As above, otherwise unremarkable. PAST SURGICAL HISTORY: Right foot and clavicle repairs. CURRENT MEDICATIONS: Vancomycin 1.25 g IV q.12 hours, ceftriaxone 2 g IV daily, Peridex rinse twice daily, Precedex drip, Lovenox 40 mg subcu daily, Pepcid 20 mg IV q.12 hours, fentanyl drip, Solu-Medr ol 40 mg IV q.8 hours, propofol drip, thiamine replacement. ALLERGIES: No known drug allergies. SOCIAL HISTORY: Patient is noted to smoke and use alcohol regularly. I discussed this with the julian ent currently. FAMILY HISTORY: Currently cannot be obtained. REVIEW OF SYSTEMS: Currently cannot be obtained, other than noted in the HPI. PHYSICAL EXAMINATION: VITAL SIGNS: Temperature maximum 37.8, temperature current 36.8, heart rate 5 4, respiratory rate 14, blood pressure 134/80, oxygen saturation 99% on 40% FiO2. GENERAL: Patient is intubated and sedated. HEENT: There is no scleral icterus, conjunctival injection, or conjunctiv al petechiae. An endotracheal tube is present in the nares. NECK: Supple without palpable lymphade nopathy or thyromegaly. CHEST: Clear to auscultation bilaterally without adventitious sounds. The respiratory effort is normal. CARDIOVASCULAR: Regular rate and rhythm without murmurs, gallops, or rubs. ABDOMEN: Soft, nontender, nondistended. There is no palpable organomegaly. Bowel sounds are present. MUSCULOSKELETAL: There is no cyanosis, clubbing, or edema. The right 3rd finger shows a scabbed ulcerative lesion without surrounding erythema. No stigmata of endocarditis are noted. NEUR OLOGIC: Patient is intubated and sedated. LYMPHATICS: No cervical or supraclavicular nodes palpabl e. No inguinal nodes. : A condom catheter is in place. LABORATORY DATA: White blood cell count 9.9, hematocrit 34.6, platelets 160, MCV 109, neutrophils 74 %, bands 15%. Serum creatinine is 0.5, AST 30, ALT 45, bilirubin 0.7, alkaline phosphatase 55, album in 3.1. Vancomycin trough is pending. Blood cultures x2 are no growth to date. Respiratory pathoge n panel by PCR is negative. Chest x-ray shows a probable atelectasis at the right base. CT scan of the neck showing changes consistent with epiglottitis. IMPRESSION: Epiglottitis: The patient had concomitant airway compromise requiring nasal intubation in the operating room. Endoscopic findings consistent with epiglottitis. Diagnostic considerations include bacterial and viral etiologies. Bacteria of consideration would include Streptococcus pneumo niae, Haemophilus influenzae, beta-hemolytic streptococci, and Staphylococcus aureus, as most likely pathogens. Viruses remain a consideration, despite negative respiratory pathogen PCR. RECOMMENDATIONS: 1. Agree with continued vancomycin and ceftriaxone pending blood culture results. 2. Continued supportive care and airway management by Intensive Care and ENT. 3. Adjust antibiotics, as cultures become available with plans to discontinue vancomycin if no MRSA isolated. 4. Thank you for this consultation. We will continue to follow the patient with you. /[id number]/MODL
--- NOTE | 2017-06-17 19:24 | SOAPPROG ---
SOAP Progress Note Assessment/Plan: Assessment: Paratracheal/paralaryngeal swelling with epiglottis s/p 06/16 fiberoptic nasal intubation. Mild elevation in WBC without further signs of acute infection. Scans not entirely consistent with angioedema but remains on the differential. Plan: - Continue antibiotics per ID - Labs per ICU team. - Recommend CT neck with contrast 06/18 AM to eval airway/neck swelling and in consideration of extubation - If deemed appropriate for extubation by ICU team, proceed as recommended. I will be in OR at [facility] in AM but will be available here at [facility] after 3pm 06/17. Please call if ENT input needed. 06/17/17 19:16 Subjective: Sedated, intubated. Objective: Vital Signs Temp Pulse Resp BP Pulse Ox 36.8 C 54 L 14 134/80 H 99 06/17/17 06:00 06/17/17 18:00 06/17/17 18:00 06/17/17 18:00 06/17/17 18:00 Microbiology 06/16/17 16:30 Respiratory Panel (PCR) - Final Nasal, Sinus - Swab No Organism Detected Laboratory Results 06/17/17 04:19 06/17/17 04:19 06/16/17 06/17/17 06/18/17 05:59 05:59 05:59 Intake Total 2987.0 1754.4 Output Total 461 700 Balance 2526.0 1054.4 PT 13.0 SEC (12.0-15.0) 06/16/17 05:05 INR 0.96 (0.83-1.16) 06/16/17 05:05 - Pending Discharge Pending Discharge Within 24 Hours: No Physical Exam - Physical Exam General Appearance: other (Intubated, sedated) EENT: other (Nasal intubation. OP/OC clear. ), No purulent nasal drainage, No pharyngeal erythema Neck: supple, normal inspection, No lymphadenopathy (R), No lymphadenopathy (L) ICD10 Worksheet Patient Problems: Problems Problem Status Onset Epiglottitis Acute Toe fracture, right Acute
[2017-06-17] MEDS: methylPREDNISolone SOD SUCC 40 MG/ML VIAL IVP SCH (22:35)
[2017-06-18] MEDS: LORazepam 2 MG/ML INJ IVP PRN ×5 (02:05→19:54)
[2017-06-18] MEDS: PROPOFOL/EMULSION 100 ML IV SCH ×3 (04:44→18:33)
[2017-06-18] MEDS: methylPREDNISolone SOD SUCC 40 MG/ML VIAL IVP SCH ×3 (05:56→22:44)
[2017-06-18] MEDS: D5W LR 1,000 ML IV SCH (06:48)
[2017-06-18] MEDS ORDERED: VANCOMYCIN 1.5 GM in NS 250 ML IV SCH (07:00)
[2017-06-18] MEDS: ENOXAPARIN 40 MG/0.4 ML SYR SC SCH (07:52)
[2017-06-18] MEDS: CHLORHEXIDINE GLUCONATE 15 ML UDL PO SCH ×2 (07:52→23:09)
[2017-06-18] MEDS: THIAMINE HCL 100 MG in NS 100 ML IV SCH (07:52)
[2017-06-18] MEDS: FAMOTIDINE 20 MG/NACL 50 ML IV SCH ×2 (07:52→22:44)
[2017-06-18 08:44] LABS: PLATELET COUNT 138 10^3/uL (150-400)
[2017-06-18] MEDS: cefTRIAXone 2 GM in STERILE WATER INJ 20 ML IV SCH (09:25)
--- NOTE | 2017-06-18 09:38 | PDINTPN ---
Mixing Place Supervisor Progress Note Assessment/Plan: Assessment: Epiglottitis: Now s/p 48 hours of CTX/Vanco and steroids. Respiratory status stable on vent. Agitation: Suspect EtOH withdrawal, with severe agitation and macrocytosis. Responded to Ativan, in addition to Propofol, Precedex, and fentanyl gtts. Respiratory Failure: Intubated for airway protection. Good gas exchange on vent. Probable EtOH abuse: Now with signs of withdrawal Macrocytosis Anemia: Low but stable today Plan: Continue CTX/Vanco/steroids. CT Neck this morning, then consider extubation if improved. Check B12, Folate levels 06/18/17 09:43 06/18/17 09:43 Subjective: Intubated, sedated Objective: Vital Signs Temp Pulse Resp BP Pulse Ox 36.4 C 44 L 14 122/74 H 99 06/18/17 00:00 06/18/17 09:00 06/18/17 09:00 06/18/17 09:00 06/18/17 09:00 Laboratory Results 06/18/17 07:50 06/18/17 05:45 06/17/17 06/18/17 06/19/17 05:59 05:59 05:59 Intake Total 2987.0 3332.5 Output Total 461 1200 Balance 2526.0 2132.5 PT 13.0 SEC (12.0-15.0) 06/16/17 05:05 INR 0.96 (0.83-1.16) 06/16/17 05:05 Physical Exam - Physical Exam General Appearance: alert, no apparent distress EENT: normal ENT inspection Neck: normal inspection Respiratory: lungs clear Cardiac/Chest: regular rate, rhythm, No edema Abdomen: normal bowel sounds, non-tender Skin: normal color, warm/dry Extremities: normal inspection Neuro/Psych: No alert, No oriented x 3 ICD10 Worksheet Patient Problems: Problems Problem Status Onset Epiglottitis Acute Toe fracture, right Acute
[2017-06-18] MEDS ORDERED: IOPAMIDOL (ISOVUE-300) 100 ML BTL ONE (13:05)
--- NOTE | 2017-06-18 15:42 | PCMIDPN ---
Assessment/Plan: Assessment/Plan (seen on rounds this a.m.): * Epiglottitis: Blood cultures and respiratory pathogen panel by PCR testing are negative. Plans for CT of neck to assess for feasibility of extubation. Will continue ceftriaxone in interim. Given no findings to suggest MRSA, will discontinue vancomycin. Continue supportive care in ICU. Follow anterior neck erythema. 06/18/17 15:39 06/18/17 15:43 06/18/17 15:43 Subjective: Intubated and sedated. Plans for neck CT scan to assess for feasibility of extubation. Objective: Vital Signs Temp Pulse Resp BP Pulse Ox 37.1 C 43 L 14 124/73 H 100 06/18/17 10:00 06/18/17 14:00 06/18/17 14:00 06/18/17 14:00 06/18/17 14:00 Laboratory Results 06/18/17 07:50 06/18/17 05:45 06/17/17 06/18/17 06/19/17 05:59 05:59 05:59 Intake Total 2987.0 3332.5 Output Total 461 1200 Balance 2526.0 2132.5 Vancomycin # 3 Ceftriaxone # 3 Blood cultures x2 no growth - Physical Exam General Appearance: no apparent distress, other (Intubated and sedated) EENT: ET Tube (In nares), No scleral icterus, No conjunctival petechiae Neck: other (Erythema over right anterior neck with mild warmth) Cardiac/Chest: bradycardia, No systolic murmur Extremities: No inflammation Abdomen: non-tender, No distended Skin: other (Scabbed lesion over right 3rd finger unchanged), No embolic lesions ICD10 Worksheet Patient Problems: Problems Problem Status Onset Epiglottitis Acute Toe fracture, right Acute
[2017-06-19] MEDS: LORazepam 2 MG/ML INJ IVP PRN ×6 (01:34→22:15)
[2017-06-19] MEDS: PROPOFOL/EMULSION 100 ML IV SCH ×3 (01:36→20:59)
[2017-06-19] MEDS: methylPREDNISolone SOD SUCC 40 MG/ML VIAL IVP SCH ×3 (05:10→22:46)
[2017-06-19 07:40] LABS: PLATELET COUNT 145 10^3/uL (150-400)
[2017-06-19] MEDS: THIAMINE HCL 100 MG in NS 100 ML IV SCH (07:58)
[2017-06-19] MEDS: cefTRIAXone 2 GM in STERILE WATER INJ 20 ML IV SCH (07:59)
[2017-06-19] MEDS: ENOXAPARIN 40 MG/0.4 ML SYR SC SCH (07:59)
[2017-06-19] MEDS: CHLORHEXIDINE GLUCONATE 15 ML UDL PO SCH ×2 (07:59→22:31)
[2017-06-19] MEDS: FAMOTIDINE 20 MG/NACL 50 ML IV SCH ×2 (07:59→22:38)
--- NOTE | 2017-06-19 14:40 | PCMIDPN ---
Assessment/Plan: Assessment/Plan (seen on rounds this a.m.): * Epiglottitis: Blood cultures remain no growth to date. Clinically stable with CT yesterday showing persistent secretions/edema around ET tube. Suspect this is most likely viral in etiology but patient is at risk for organisms such as Streptococcus pneumoniae and Haemophilus influenzae. Will continue 7 days of ceftriaxone. Await additional ENT input regarding timing of extubation. 06/19/17 14:37 Subjective: Intubated and sedated. Objective: Vital Signs Temp Pulse Resp BP Pulse Ox 37 C 66 14 148/92 H 91 L 06/19/17 09:00 06/19/17 14:00 06/19/17 14:00 06/19/17 14:00 06/19/17 14:00 Laboratory Results 06/19/17 07:30 06/18/17 05:45 06/18/17 06/19/17 06/20/17 05:59 05:59 05:59 Intake Total 3332.5 3012.1 Output Total 1200 1300 Balance 2132.5 1712.1 Ceftriaxone # 4 Blood cultures x2 no growth - Physical Exam General Appearance: apparent distress, non-toxic EENT: ET Tube (Nasal) Respiratory: lungs clear, No respiratory distress Neck: other (Erythema over right anterior neck without change and minimal overlying warmth) Cardiac/Chest: bradycardia Extremities: No inflammation Abdomen: non-tender, No distended Skin: No rash ICD10 Worksheet Patient Problems: Problems Problem Status Onset Epiglottitis Acute Toe fracture, right Acute
--- NOTE | 2017-06-19 15:33 | PDINTPN ---
Transferrer Progress Note Assessment/Plan: Assessment: Epiglottitis: Now s/p 72 hours of CTX/Vanco and steroids. Respiratory status stable on vent. Agitation: Suspect EtOH withdrawal, with severe agitation and macrocytosis. Responded to Ativan, in addition to Propofol, Precedex, and fentanyl gtts. Respiratory Failure: Intubated for airway protection. Good gas exchange on vent. Probable EtOH abuse: Now with signs of withdrawal Macrocytosis: Likely due to EtOH Anemia: Down slightly today Bradycardia: ? Precedex contributes. Plan: Continue CTX/Vanco/steroids. Sedation with Propofol. Ativan PRN. Will stop Precedex. Consider trial of deflating cuff and extubating tomorrow. 06/19/17 15:32 Subjective: Intubated, sedated Objective: Vital Signs Temp Pulse Resp BP Pulse Ox 37 C 33 L 14 153/85 H 99 06/19/17 09:00 06/19/17 15:00 06/19/17 15:00 06/19/17 15:00 06/19/17 15:00 Laboratory Results 06/19/17 07:30 06/18/17 05:45 06/18/17 06/19/17 06/20/17 05:59 05:59 05:59 Intake Total 3332.5 3012.1 Output Total 1200 1300 Balance 2132.5 1712.1 PT 13.0 SEC (12.0-15.0) 06/16/17 05:05 INR 0.96 (0.83-1.16) 06/16/17 05:05 CT Neck 06/18: Improved, not resolved, epiglottic thickening. Images reviewed by me. Laboratory Tests 06/18/17 05:45 Vitamin B12 348 Folate 5.31 Physical Exam - Physical Exam General Appearance: unresponsive EENT: normal ENT inspection, ET tube (nasal) Neck: normal inspection Respiratory: lungs clear, normal breath sounds Cardiac/Chest: regular rate, rhythm, edema Abdomen: normal bowel sounds, non-tender Skin: normal color, warm/dry Extremities: normal inspection Neuro/Psych: No alert ICD10 Worksheet Patient Problems: Problems Problem Status Onset Epiglottitis Acute Toe fracture, right Acute
--- NOTE | 2017-06-19 15:59 | ASMTCMCOM ---
CM Note CM Note Notes: Patient continues CTX/Vanco/steroids. Possible extubation tomorrow. Patient has signs of ETOH withdrawal today. CM will follow. Date Signed: 06/19/2017 03:55 PM Electronically Signed By:Argentina Mehta LCSW
--- NOTE | 2017-06-19 19:09 | HOSPPROG ---
Hospitalist Progress Note Assessment/Plan: DIAGNOSES: -acute epiglottitis, severe requiring intubation and mechanical ventilation -acute respiratory failure due to above -acute alcohol withdrawal syndrome requiring high doses of sedation medication -severe macrocytosis, likely nutritional and alcohol and liver related -high likelihood of vitamin deficiencies including thiamin Seen by me today on hospitalist rounds and also on multidisciplinary rounds Reviewed in detail with Dr. Terence Guardado PLANS: -continue respiratory supportive care with intubation mechanical ventilation -continue steroids and antibiotics -will review with ENT, suspect that they will recommend re-endoscoping tomorrow -continue management of alcohol withdrawal, but at this time would add Precedex and increase that to significant dose decreasing dosing of propofol and Ativan the latter of which could be aggravating the situation with disinhibition -continue careful restraints to avoid patient self extubation, and reviewed this in detail with the staff -I have added thiamin replacement due to his alcohol use -eventually he will need alcohol counseling and recommendations for rehabilitation SUBJECTIVE: Patient is currently sedated and not at all conversant or responding to voice Per the nursing staff he has been quite agitated and requiring frequent doses of IV Ativan 2 mg in the addition to propofol he is receiving No other acute changes per nursing OBJECTIVE Vitals reviewed: Stable without fever Ground Operations Superintendent, my review: Sinus rhythm Ventilator: At this point he is doing well on SIMV mostly breathing prevent on heavy sedation, however intermittently he becomes agitated and is tachypneic as high as 24 breaths per minute over the vent Exam: Heavily sedated, however still agitated squirming and writhing in the bed fair bit particularly with any examination skin warm dry color ok resps not labored lungs clear BSs heart regular abd soft nondistended nontender, bowel sounds present limbs warm, no edema iv site ok Laboratory data: White blood cell count has increased, likely at least partly due to steroid Hemoglobin decreased from 16-12, suspect largely delusional Remains severely macro psychotic Chemistries overall stable today Microbiology data: All cultures and other studies negative so far Chest x-ray today, my interpretation of images: Some density at the right lower lobe could be atelectasis or infiltrate from aspiration ET tube in good position Objective: Vital Signs Temp Pulse Resp BP Pulse Ox 37 C 35 L 14 149/87 H 99 06/19/17 16:00 06/19/17 18:00 06/19/17 18:00 06/19/17 18:00 06/19/17 18:00 Laboratory Results 06/19/17 07:30 06/19/17 18:20 06/18/17 06/19/17 06/20/17 06:59 06:59 06:59 Intake Total 3332.5 3012.1 1642 Output Total 1200 1300 400 Balance 2132.5 1712.1 1242 PT 13.0 SEC (12.0-15.0) 06/16/17 05:05 INR 0.96 (0.83-1.16) 06/16/17 05:05 ICD10 Worksheet Patient Problems: Problems Problem Status Onset Epiglottitis Acute Toe fracture, right Acute
[2017-06-20] MEDS: LORazepam 2 MG/ML INJ IVP PRN ×3 (00:09→14:53)
[2017-06-20] MEDS: methylPREDNISolone SOD SUCC 40 MG/ML VIAL IVP SCH ×3 (05:03→22:03)
[2017-06-20] MEDS: PROPOFOL/EMULSION 100 ML IV SCH ×2 (05:04→09:47)
--- NOTE | 2017-06-20 07:35 | SOAPPROG ---
SOAP Progress Note Assessment/Plan: Assessment: Paratracheal/paralaryngeal swelling with epiglottis s/p 06/16 fiberoptic nasal intubation. Prior elevation in WBC without further signs of acute infection. Plan: - Would consider extubation today around noon. Pretreat with 8mg Decadron IV in AM. Have trach cart, 6-0 and 7-0 cuffed nonfenestrated trach tubes, 1% lidocaine with epinephrine for possible local injection, and fiberoptic intubating laryngoscope (from OR) present. Check for leak after suctioning. Would be available to scope patient prior to extubation around noon (In OR at surgery center until then). - Continue antibiotics per ID - Labs/supplements per ICU team - Recommend CT neck with contrast 06/18 AM to eval airway/neck swelling and in consideration of extubation - If deemed appropriate for extubation by ICU team, proceed as recommended. I will be in OR at [facility] in AM but will be available here at [facility] after 3pm 06/17. Please call if ENT input needed. 06/20/17 07:35 Subjective: Intubated, sedated. Objective: Vital Signs Temp Pulse Resp BP Pulse Ox 36.1 C 31 L 24 H 138/80 H 100 06/20/17 05:15 06/20/17 06:00 06/20/17 06:00 06/20/17 06:00 06/20/17 06:00 Laboratory Results 06/19/17 07:30 06/19/17 18:20 06/19/17 06/20/17 06/21/17 05:59 05:59 05:59 Intake Total 3012.1 2020 Output Total 1300 1800 Balance 1712.1 220 PT 13.0 SEC (12.0-15.0) 06/16/17 05:05 INR 0.96 (0.83-1.16) 06/16/17 05:05 - Pending Discharge Pending Discharge Within 24 Hours: No Physical Exam - Physical Exam General Appearance: WD/WN, other (Sedated) EENT: other (Nasal ET tube in place.) Neck: non-tender, full range of motion, supple, normal inspection, No lymphadenopathy (R), No lymphadenopathy (L) Neuro/Psych: other (sedated) ICD10 Worksheet Patient Problems: Problems Problem Status Onset Epiglottitis Acute Toe fracture, right Acute
[2017-06-20] MEDS: FAMOTIDINE 20 MG/NACL 50 ML IV SCH ×2 (07:37→21:03)
[2017-06-20] MEDS: cefTRIAXone 2 GM in STERILE WATER INJ 20 ML IV SCH (07:38)
[2017-06-20] MEDS: ENOXAPARIN 40 MG/0.4 ML SYR SC SCH (07:43)
[2017-06-20] MEDS: CHLORHEXIDINE GLUCONATE 15 ML UDL PO SCH (07:44)
[2017-06-20] MEDS: THIAMINE HCL 100 MG in NS 100 ML IV SCH (07:44)
[2017-06-20] MEDS ORDERED: DEXAMETHASONE 4 MG/ML VIAL IVP ONE (09:58)
--- NOTE | 2017-06-20 11:14 | PDINTPN ---
Research Technician Progress Note Assessment/Plan: Assessment: Epiglottitis: Now s/p 4 days of CTX/Vanco and steroids. Respiratory status stable on vent. Agitation: Suspect EtOH withdrawal, with severe agitation and macrocytosis. Responded to Ativan, in addition to Propofol, Precedex, and fentanyl gtts. Precedex now stopped due to bradycardia. Respiratory Failure: Intubated for airway protection. Good gas exchange on vent. Probable EtOH abuse: Now with signs of withdrawal Macrocytosis: Likely due to EtOH Anemia: Down slightly today Bradycardia: Persists off precedex. Plan: Continue CTX/Vanco/steroids. Sedation with Propofol. Ativan PRN. Consider trial of deflating cuff and extubating mid-day with Dr. Rocha. 06/20/17 11:14 Subjective: Intubated, sedated Objective: Vital Signs Temp Pulse Resp BP Pulse Ox 36.1 C 33 L 14 160/83 H 100 06/20/17 05:15 06/20/17 10:00 06/20/17 10:00 06/20/17 10:00 06/20/17 10:00 Laboratory Results 06/19/17 07:30 06/19/17 18:20 06/19/17 06/20/17 06/21/17 05:59 05:59 05:59 Intake Total 3012.1 2020 Output Total 1300 1800 Balance 1712.1 220 PT 13.0 SEC (12.0-15.0) 06/16/17 05:05 INR 0.96 (0.83-1.16) 06/16/17 05:05 Physical Exam - Physical Exam General Appearance: no apparent distress, unresponsive, No alert EENT: normal ENT inspection Neck: normal inspection Respiratory: chest non-tender, lungs clear Cardiac/Chest: normal peripheral pulses, regular rate, rhythm Abdomen: normal bowel sounds, non-tender Skin: normal color, warm/dry Extremities: normal inspection Neuro/Psych: alert, normal mood/affect, oriented x 3 ICD10 Worksheet Patient Problems: Problems Problem Status Onset Epiglottitis Acute Toe fracture, right Acute
--- NOTE | 2017-06-20 11:54 | ASMTCMCOM ---
CM Note CM Note Notes: Patient to be extubated today around 12:00. Treating ETOH withdrawal currently, patient's agitation levels have been increased. Patient will need CAGE, and A and D resources when he is able to communicate and is medically stable. CM will follow. Date Signed: 06/20/2017 11:53 AM Electronically Signed By:Argentina Mehta LCSW
[2017-06-20] MEDS ORDERED: OXYMETAZOLINE 30 ML NASAL SPRAY EACHNARE PRN (13:13)
[2017-06-20] MEDS ORDERED: LIDOCAINE 1% *Not for Epidural 20 ML MDV IF ONE (13:15)
--- NOTE | 2017-06-20 13:55 | PCMIDPN ---
Assessment/Plan: 1. Epiglottitis: Agree that viral etiology seems most plausible. That being said, will continue ceftriaxone for 2 more days to complete 7 days of therapy. No new recommendations other than an HIV antibody test when he is able to consent. Subjective: Just extubated! Still out of it. Oxygen saturation and other vital signs are stable. No diarrhea per nurse. Objective: Ceftriaxone 2 g IV daily day 5 Afebrile Vital Signs Temp Pulse Resp BP Pulse Ox 36.1 C 47 L 12 167/98 H 99 06/20/17 12:00 06/20/17 13:15 06/20/17 13:15 06/20/17 13:15 06/20/17 13:15 Laboratory Results 06/19/17 07:30 06/19/17 18:20 06/19/17 06/20/17 06/21/17 05:59 05:59 05:59 Intake Total 3012.1 2020 Output Total 1300 1800 Balance 1712.1 220 No new microbiology Respiratory PCR negative - Physical Exam General Appearance: cachetic, other (Just extubated) EENT: No thrush Respiratory: lungs clear Cardiac/Chest: regular rate, rhythm Abdomen: non-tender, soft Skin: No rash ICD10 Worksheet Patient Problems: Problems Problem Status Onset Epiglottitis Acute Toe fracture, right Acute
[2017-06-20] MEDS: HALOPERIDOL LACT 5 MG/ML INJ IVP PRN (15:03)
--- NOTE | 2017-06-20 15:12 | HOSPPROG ---
Hospitalist Progress Note Assessment/Plan: CRITICAL CARE TIME: I spent greater than 50 min at bedside today critical care time with this patient including time assisting with keeping the patient safe and keeping staff safe during his severe agitation, reviewing sedation protocols with nurses , moving airway scenario with lio Streeter and other aspects of his care today DIAGNOSES: -acute epiglottitis, severe requiring intubation and mechanical ventilation * Successfully extubated 06/20 -acute respiratory failure due to above -severe agitated delirium most likely due to acute alcohol withdrawal syndrome requiring high doses of sedation medication, though other aspects of his acute illness and ICU care may be contributing as well -severe macrocytosis, likely nutritional and alcohol and liver related -high likelihood of vitamin deficiencies including thiamin Seen by me today on hospitalist rounds and also on multidisciplinary rounds Reviewed in detail with Dr. Terence Guardado and Dr. Rk Rocha PLANS: -follow airway and respiratory status very closely in ICU -continue steroids and antibiotics -at this time resumption of Precedex drip in using that is the main medication for controlling his agitated delirium with as needed Haldol, he will also be given scheduled Ativan to prevent seizure; I have reviewed in detail with the nursing staff questions around dosing. If necessary we may consider addition of ketamine as with affect quite a time with bradycardia -continue careful restraints to avoid patient self extubation, and reviewed this in detail with the staff -I have added thiamin replacement due to his alcohol use -eventually he will need alcohol counseling and recommendations for rehabilitation SUBJECTIVE: Patient currently extubated Twice this afternoon since extubation he has had severe episodes of agitation with violent interactions with family and staff, despite ongoing sedation medications. He believes he is in hospital in [facility]. Patient clearly confused unable to tell us much more about symptoms but seems to be denying pain. 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 He is clearly very delusional, I enema able to determine if he is hallucinating. Intermittently when I have been with him he has been severely agitated and has required not only multiple ICU staff but security officers to get him into his bed so that he can be kept safe. Unable to stand safely on his own continues to climb be over the rails of the bed if someone is not keeping him in. He has been violent with staff and his here skin warm dry color ok resps rapid though less labored when we do intermittently getting better sedated lungs clear BSs heart regular abd soft nondistended nontender, bowel sounds present limbs warm, no edema Earlier today on assessment by Dr. Rocha and Dr. Guardado it was found that he had good air leak around his endotracheal tube and there was confidence that he could be extubated. He was successfully extubated after this. At this time in terms of respirations he does have a good strong voice, does not appear to be having trouble with secretions, does not have stridor. iv site ok Microbiology data: All cultures and other studies negative so far Objective: Vital Signs Temp Pulse Resp BP Pulse Ox 36.1 C 41 L 12 171/85 H 99 06/20/17 12:00 06/20/17 14:00 06/20/17 14:00 06/20/17 14:00 06/20/17 14:00 Laboratory Results 06/19/17 07:30 06/19/17 18:20 06/19/17 06/20/17 06/21/17 06:59 06:59 06:59 Intake Total 3012.1 2020 Output Total 1300 1800 Balance 1712.1 220 PT 13.0 SEC (12.0-15.0) 06/16/17 05:05 INR 0.96 (0.83-1.16) 06/16/17 05:05 ICD10 Worksheet Patient Problems: Problems Problem Status Onset Epiglottitis Acute Toe fracture, right Acute
[2017-06-20] MEDS: DEXMEDETOMIDINE HCL 400 MCG in NS 100 ML IV SCH (15:31)
[2017-06-20] MEDS: LORazepam 2 MG/ML INJ IVP SCH ×2 (18:21→23:56)
[2017-06-21] MEDS: DEXMEDETOMIDINE HCL 400 MCG in NS 100 ML IV SCH (02:44)
[2017-06-21] MEDS: HALOPERIDOL LACT 5 MG/ML INJ IVP PRN (02:50)
[2017-06-21] MEDS: LORazepam 2 MG/ML INJ IVP PRN ×2 (02:54→04:53)
[2017-06-21] MEDS: methylPREDNISolone SOD SUCC 40 MG/ML VIAL IVP SCH ×2 (05:56→20:44)
[2017-06-21] MEDS: LORazepam 2 MG/ML INJ IVP SCH ×3 (06:04→17:28)
--- NOTE | 2017-06-21 09:47 | PCMIDPN ---
Assessment/Plan: 1. Epiglottitis: Agree that viral etiology seems most plausible. That being said, will continue ceftriaxone for 1 more days to complete 7 days of therapy. Patient agrees to an HIV antibody test today. Subjective: Apparently was violent last night, out of it, kicking and screaming and hitting staff. Patient tells me that he wants to go home. Denies a sore throat. Heart rate persistently in the 30s, with good blood pressure. Objective: Ceftriaxone 2 g IV daily day 6 No fever Vital Signs Temp Pulse Resp BP Pulse Ox 36.2 C 30 L 13 190/92 H 94 06/20/17 20:00 06/21/17 09:00 06/21/17 09:00 06/21/17 09:00 06/21/17 09:00 Microbiology 06/16/17 07:00 Blood Culture - Final Blood 06/16/17 07:10 Blood Culture - Final Blood Laboratory Results 06/21/17 04:30 06/21/17 04:30 06/20/17 06/21/17 06/22/17 05:59 05:59 05:59 Intake Total 2019 2421.2 500 Output Total 1800 1025 240 Balance 220 1396.2 260 - Physical Exam General Appearance: other (Alert and oriented x3. No complaints. Frustrated about being restrained.) EENT: pharynx normal, No thrush Respiratory: lungs clear Cardiac/Chest: bradycardia Abdomen: non-tender, soft Skin: No rash ICD10 Worksheet Patient Problems: Problems Problem Status Onset Epiglottitis Acute Toe fracture, right Acute
[2017-06-21] MEDS ORDERED: FUROSEMIDE 20 MG/2 ML VIAL IVP ONE (10:00)
[2017-06-21] MEDS: THIAMINE HCL 100 MG in NS 100 ML IV SCH (10:23)
[2017-06-21] MEDS: ENOXAPARIN 40 MG/0.4 ML SYR SC SCH (10:23)
[2017-06-21] MEDS: FAMOTIDINE 20 MG/NACL 50 ML IV SCH ×2 (10:24→20:44)
[2017-06-21] MEDS: cefTRIAXone 2 GM in STERILE WATER INJ 20 ML IV SCH (10:30)
--- NOTE | 2017-06-21 11:23 | PDINTPN ---
Shotblaster Progress Note Assessment/Plan: Assessment: Epiglottitis: Now s/p 5 days of CTX/Vanco and steroids. Extubated yesterday Agitation: Suspect EtOH withdrawal, with severe agitation and macrocytosis. Responded to Ativan, in addition to Propofol, Precedex, and fentanyl gtts. Respiratory Failure: Intubated for airway protection. Extubated 06/20, no distress Probable EtOH abuse: Now with signs of withdrawal Macrocytosis: Likely due to EtOH Anemia: Hgb up today Bradycardia: Persists off Precedex. BP OK, no signs of hypoperfusion. Plan: Continue CTX. Reduce steroids. Continue scheduled Ativan, reduce dose if sedated. Haldol or Precedex PRN. Advance diet when able to cooperate with ST for swallow eval. 06/21/17 11:44 Subjective: Agitated/combative last night. Calmer this morning but not reliably following commands, answering questions. Objective: Vital Signs Temp Pulse Resp BP Pulse Ox 36.2 C 33 L 13 167/87 H 93 06/20/17 20:00 06/21/17 11:00 06/21/17 11:00 06/21/17 11:00 06/21/17 11:00 Microbiology 06/16/17 07:00 Blood Culture - Final Blood 06/16/17 07:10 Blood Culture - Final Blood Laboratory Results 06/21/17 04:30 06/21/17 04:30 06/20/17 06/21/17 06/22/17 05:59 05:59 05:59 Intake Total 2020 2421.2 500 Output Total 1800 1025 1790 Balance 220 1396.2 -1290 PT 13.0 SEC (12.0-15.0) 06/16/17 05:05 INR 0.96 (0.83-1.16) 06/16/17 05:05 Physical Exam - Physical Exam General Appearance: No alert (sedated but arousable) EENT: normal ENT inspection Neck: normal inspection Respiratory: chest non-tender, lungs clear, normal breath sounds Cardiac/Chest: regular rate, rhythm, No edema Abdomen: normal bowel sounds, non-tender Skin: normal color, warm/dry Extremities: normal inspection Neuro/Psych: No alert, No normal mood/affect, No oriented x 3, No motor weakness ICD10 Worksheet Patient Problems: Problems Problem Status Onset Epiglottitis Acute Toe fracture, right Acute
--- NOTE | 2017-06-21 19:22 | HOSPPROG ---
Hospitalist Progress Note Assessment/Plan: DIAGNOSES: -acute epiglottitis, severe requiring intubation and mechanical ventilation * Successfully extubated 06/20 -acute respiratory failure due to above * Now extubated Greater than 24 hr and appearing reasonably stable at the moment -severe agitated delirium most likely due to acute alcohol withdrawal syndrome requiring high doses of sedation medication, though other aspects of his acute illness and ICU care may be contributing as well * Still disoriented but notably improved compared to the last 2 days and using much less medication today -severe macrocytosis, likely nutritional and alcohol and liver related -high likelihood of vitamin deficiencies including thiamin Seen by me today on hospitalist rounds and also on multidisciplinary rounds Reviewed in detail with Dr. Terence Guardado and Dr. Rk Rocha PLANS: -follow airway and respiratory status very closely in ICU -continue steroids and antibiotics -continue follow his agitation and delirium closely trying to wean off medicines as able, try and increase nutritional intake continue vitamin replacements, increase activity as able -thiamin replacement due to his alcohol use -eventually he will need alcohol counseling and recommendations for rehabilitation SUBJECTIVE: Mild throat pain otherwise no discomfort, extremely weak and tired, no appetite Not short of breath Less anxious OBJECTIVE Vitals reviewed: Now overall stable without fever 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, my review: Sinus rhythm Exam: Still a bit delirious and disoriented, but much better than yesterday, not anywhere nearly as anxious or agitated and interacting with staff family and others much more normally Looks exhausted No stridor, voice much stronger than yesterday skin warm dry color ok resps less labored lungs clear BSs heart regular abd soft nondistended nontender, bowel sounds present limbs warm, no edema iv site ok Microbiology data: All cultures and other studies negative so far Objective: Vital Signs Temp Pulse Resp BP Pulse Ox 36.2 C 74 20 129/70 H 95 06/20/17 20:00 06/21/17 16:00 06/21/17 16:00 06/21/17 16:00 06/21/17 16:00 Microbiology 06/16/17 07:00 Blood Culture - Final Blood 06/16/17 07:10 Blood Culture - Final Blood Laboratory Results 06/21/17 04:30 06/21/17 04:30 06/20/17 06/21/17 06/22/17 06:59 06:59 06:59 Intake Total 2019 2921.2 420 Output Total 1800 1025 3440 Balance 220 1896.2 -3020 PT 13.0 SEC (12.0-15.0) 06/16/17 05:05 INR 0.96 (0.83-1.16) 06/16/17 05:05 - Time Spent With Patient Time Spent with Patient: greater than 35 minutes Time Spent with Patient: Greater than 35 minutes spent on this patients care, greater than 50% of time spent counseling, educating, and coordinating care regarding the above mentioned plan. ICD10 Worksheet Patient Problems: Problems Problem Status Onset Epiglottitis Acute Toe fracture, right Acute
[2017-06-22] MEDS: LORazepam 2 MG/ML INJ IVP SCH ×2 (00:21→05:39)
--- NOTE | 2017-06-22 05:38 | CPEKG ---
Heart Rate: 68 RR Interval: 882 P-R Interval: 164 QRSD Interval: 94 QT Interval: 412 QTC Interval: 439 P [place]: 32 QRS [place]: 19 T Wave [place]: 35 EKG Severity - NORMAL ECG - EKG Impression: SINUS RHYTHM Electronically Signed By: Brianda Collins 22-Jun-2017 07:51:54
[2017-06-22] MEDS ORDERED: PROTOCOL POTASSIUM 1 DOSE MISC PRN (06:34)
[2017-06-22] MEDS ORDERED: PROTOCOL MAGNESIUM 1 DOSE IV PRN (06:34)
[2017-06-22] MEDS: FAMOTIDINE 20 MG/NACL 50 ML IV SCH (07:48)
[2017-06-22] MEDS: cefTRIAXone 2 GM in STERILE WATER INJ 20 ML IV SCH (07:48)
[2017-06-22] MEDS: ENOXAPARIN 40 MG/0.4 ML SYR SC SCH (07:48)
[2017-06-22] MEDS: methylPREDNISolone SOD SUCC 40 MG/ML VIAL IVP SCH (07:48)
[2017-06-22] MEDS ORDERED: POTASSIUM CL 10 MEQ TAB PO ONE ×3 (08:00→23:10)
[2017-06-22] MEDS: THIAMINE HCL 100 MG in NS 100 ML IV SCH (09:45)
--- NOTE | 2017-06-22 10:40 | PCMIDPN ---
Assessment/Plan: 1. Epiglottitis: Markedly improved. Patient has completed 7 days of ceftriaxone; will stop. Suspect viral etiology was causative. HIV antibody test pending. Subjective: Patient is much better. Just had a shower, no complaints. No sore throat, problems breathing or other. Objective: Ceftriaxone 2 g IV daily day 08/30 T-max 37.3 degrees Vital Signs Temp Pulse Resp BP Pulse Ox 36.8 C 54 L 23 H 160/88 H 88 L 06/22/17 07:44 06/22/17 07:44 06/22/17 07:44 06/22/17 07:44 06/22/17 07:44 Microbiology 06/16/17 07:00 Blood Culture - Final Blood 06/16/17 07:10 Blood Culture - Final Blood Laboratory Results 06/21/17 04:30 06/22/17 05:45 06/21/17 06/22/17 06/23/17 05:59 05:59 05:59 Intake Total 2421.2 1470 Output Total 1025 3890 Balance 1396.2 -2420 - Physical Exam General Appearance: alert, no apparent distress EENT: pharynx normal, No thrush Respiratory: lungs clear ICD10 Worksheet Patient Problems: Problems Problem Status Onset Epiglottitis Acute Toe fracture, right Acute
[2017-06-22] MEDS ORDERED: LORazepam 1 MG TAB PO PRN (11:58)
--- NOTE | 2017-06-22 11:59 | PDINTPN ---
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 Extubated 06/20. No symptoms currently Agitation: Suspect EtOH withdrawal, with severe agitation and macrocytosis. Responded to Ativan, in addition to Propofol, Precedex, and fentanyl gtts. Now these medications are stopped, and he's doing well. Respiratory Failure: Intubated for airway protection. Extubated 06/20, no distress Probable EtOH abuse: Had signs of withdrawal, now improved Macrocytosis: Likely due to EtOH Anemia: Hgb up today Bradycardia: Improved Plan: Discontinue CTX. Reduce steroids, give until discharge. Change Ativan to PO PRN, with IV PRN. OK to transfer to floor. 06/22/17 11:59 Subjective: Feels much better, less distress/anxiety. Breathing and swallowing feels normal. Appetite good. Objective: Vital Signs Temp Pulse Resp BP Pulse Ox 36.8 C 54 L 23 H 160/88 H 88 L 06/22/17 07:44 06/22/17 07:44 06/22/17 07:44 06/22/17 07:44 06/22/17 07:44 Microbiology 06/16/17 07:00 Blood Culture - Final Blood 06/16/17 07:10 Blood Culture - Final Blood Laboratory Results 06/21/17 04:30 06/22/17 05:45 06/21/17 06/22/17 06/23/17 05:59 05:59 05:59 Intake Total 2421.2 1470 Output Total 1025 3890 Balance 1396.2 -2420 PT 13.0 SEC (12.0-15.0) 06/16/17 05:05 INR 0.96 (0.83-1.16) 06/16/17 05:05 Physical Exam - Physical Exam General Appearance: alert, no apparent distress EENT: normal ENT inspection Neck: normal inspection Respiratory: lungs clear, normal breath sounds Cardiac/Chest: regular rate, rhythm, No edema Abdomen: normal bowel sounds, non-tender Skin: normal color, warm/dry Extremities: normal inspection Neuro/Psych: alert, normal mood/affect, oriented x 3 ICD10 Worksheet Patient Problems: Problems Problem Status Onset Epiglottitis Acute Toe fracture, right Acute
--- NOTE | 2017-06-22 12:15 | HOSPPROG ---
Hospitalist Progress Note Assessment/Plan: 42 yo M w epiglottitis, alcohol withdrawal epiglottitis: no stridor has completed 7 days abx continue steroids 2 additional days alcohol withdrawal: improving continue ciwa proph: lmwh unsteadiness: continue pt dispo: to floor Subjective: case d/w dr acuan. on RA. unsteady, per pt Objective: Vital Signs Temp Pulse Resp BP Pulse Ox 36.8 C 54 L 23 H 160/88 H 88 L 06/22/17 07:44 06/22/17 07:44 06/22/17 07:44 06/22/17 07:44 06/22/17 07:44 Microbiology 06/16/17 07:00 Blood Culture - Final Blood 06/16/17 07:10 Blood Culture - Final Blood Laboratory Results 06/21/17 04:30 06/22/17 05:45 06/21/17 06/22/17 06/23/17 05:59 05:59 05:59 Intake Total 2421.2 1470 Output Total 1025 3890 Balance 1396.2 -2420 PT 13.0 SEC (12.0-15.0) 06/16/17 05:05 INR 0.96 (0.83-1.16) 06/16/17 05:05 - Physical Exam Constitutional: no apparent distress, appears nourished Eyes: PERRL, anicteric sclera Ears, Nose, Mouth, Throat: moist mucous membranes, hearing normal Cardiovascular: regular rate and rhythym, no murmur, rub, or gallop Respiratory: no respiratory distress, no rales or rhonchi Gastrointestinal: normoactive bowel sounds, soft, non-tender abdomen Genitourinary: no bladder fullness, No oro in urethra Skin: warm, normal color Musculoskeletal: full muscle strength, no muscle tenderness Neurologic: AAOx3 Psychiatric: interacting appropriately ICD10 Worksheet Patient Problems: Problems Problem Status Onset Epiglottitis Acute Toe fracture, right Acute
[2017-06-23 02:49] LABS: HIV TYPE 1 AND 2 NEGATIVE (NEGATIVE)
[2017-06-23 08:00] VITALS: BP 135/79
[2017-06-23] MEDS ORDERED: THIAMINE HCL 100 MG TAB PO SCH (09:00)
[2017-06-23] MEDS ORDERED: predniSONE 20 MG TAB PO SCH (09:00)
[2017-06-23] MEDS ORDERED: PNEUMOCOCCAL 0.5ML VACCINE VIAL IM ONE (09:39)
--- NOTE | 2017-06-23 09:52 | ASMTLACE ---
[facility] Length of stay for Answers: 7-13 days current admission Acuity / Level of Answers: Yes Care: Did the patient have an inpatient admission? Comorbidities - select Answers: Other Notes: Epiglotitis all that apply # of Emergency department Answers: 1-2 visits in the last 6 months Social determinants Answers: History of substance abuse (ETOH, street drugs, prescription drugs, etc.) Score: 13 Date Signed: 06/23/2017 09:52 AM Electronically Signed By:Mary Lugo LCSW
--- NOTE | 2017-06-23 11:27 | HOSPPROG ---
Hospitalist Progress Note Assessment/Plan: 42 yo M w epiglottitis, alcohol withdrawal epiglottitis: no stridor has completed 7 days abx continue steroids 2 additional days alcohol withdrawal: improving continue ciwa proph: lmwh unsteadiness: continue pt dispo: home today > 30 minutes Subjective: stable. alert. cleared by pt Objective: Vital Signs Temp Pulse Resp BP Pulse Ox 37.5 C 100 15 135/79 H 96 06/23/17 07:57 06/23/17 07:57 06/23/17 07:57 06/23/17 07:57 06/23/17 07:57 Laboratory Results 06/21/17 04:30 06/23/17 05:27 06/22/17 06/23/17 06/24/17 05:59 05:59 05:59 Intake Total 1470 1680 Output Total 3890 Balance -2420 1680 PT 13.0 SEC (12.0-15.0) 06/16/17 05:05 INR 0.96 (0.83-1.16) 06/16/17 05:05 - Physical Exam Constitutional: no apparent distress, appears nourished Eyes: PERRL, anicteric sclera Ears, Nose, Mouth, Throat: moist mucous membranes, hearing normal Cardiovascular: regular rate and rhythym, no murmur, rub, or gallop Respiratory: no respiratory distress, no rales or rhonchi Gastrointestinal: normoactive bowel sounds, soft, non-tender abdomen Genitourinary: no bladder fullness, No oro in urethra Skin: warm, normal color Musculoskeletal: full muscle strength Neurologic: AAOx3 Psychiatric: interacting appropriately ICD10 Worksheet Patient Problems: Problems Problem Status Onset Epiglottitis Acute Toe fracture, right Acute
--- NOTE | 2017-06-23 13:31 | GDS ---
[f rep st] DISCHARGE SUMMARY DISCHARGE DIAGNOSES: 1. Epiglottitis. 2. Alcohol withdrawal. 3. Acute hypoxemic respiratory failure, now resolved. Please see admission history and physical by Dr. Sherita Ashford. The patient presented to the ER early in the morning on the . ENT performed fiberoptic nasal intubation after a CAT scan showed epigl ottitis. He received steroids and antibiotics. The patient was subsequently extubated. He had a fo llowup CT done on the , showing thickening of the epiglottis and aryepiglottic folds improved. Huber ibrahim I took over the patient's care on the , the patient is ambulating, off oxygen, a little bit u nsteady on his feet. He did have alcohol withdrawal, requiring benzodiazepines. He is currently nei ther tachycardic nor hypoxic. Discharged home. No medication. /[id number]/MODL
== END 2017-06-23 11:48 | disposition home or self-care (01) | DRG 113 ==
LOC: EDUNIT# → EDAGE → F2N 07:08
PROVIDERS: ADMIT Family Medicine; ATTEND Internal Medicine
PROC: 5A1945Z Respiratory Ventilation, 24-96 Consecutive Hours (ICD-10-PCS; principal; 2017-06-16 06:30)
PROC: 0BH17EZ Insertion of Endotracheal Airway into Trachea, Via Natural or Artificial Opening (ICD-10-PCS; principal; 2017-06-16 06:30)
PROC: HZ2ZZZZ Detoxification Services for Substance Abuse Treatment (ICD-10-PCS; 2017-06-17)
DX: J05.10 Acute epiglottitis without obstruction (principal); J96.01 Acute respiratory failure with hypoxia; F10.231 Alcohol dependence with withdrawal delirium; R45.1 Restlessness and agitation; R73.9 Hyperglycemia, unspecified; R26.81 Unsteadiness on feet; F17.210 Nicotine dependence, cigarettes, uncomplicated; Z23 Encounter for immunization; Y90.9 Presence of alcohol in blood, level not specified
CPT/HCPCS: 82607-90; 82947-QW; 92526-GN; 92610-GN; 96374; 97116-GP; 97162-GP; 97165-GO; 97530-GP; G0009; G0480; J0171; J0461; J0696; J1100; J1630; J1650; J1940; J2060; J2250; J2270; J2405; J2704; J2920; J3010; J3370; J3411; J7512; Q9967

== ENCOUNTER 2017-07-20 11:37 | Emergency (ER) | payer MEDICAID ==
[2017-07-20] MEDS ORDERED: LIDOCAINE 4%/MENTHOL 1% PATCH TD ONE (12:50)
[2017-07-20] MEDS ORDERED: NS 1,000 ML IV ONE (12:50)
[2017-07-20] MEDS ORDERED: HYDROmorphONE/DILAUDID 2 MG/ML INJ IVP ONE ×2 (12:50→13:08)
[2017-07-20] MEDS ORDERED: ONDANSETRON 4 MG/2 ML VIAL IVP ONE (12:50)
--- NOTE | 2017-07-20 13:02 | EDPHY ---
H & P Time Seen by Provider: 07/20/17 12:46 HPI/ROS: CHIEF COMPLAINT: Right-sided chest and abdominal pain HISTORY OF PRESENT ILLNESS: Fell against a railing on Friday night 2 days ago, on his porch. Complains of right-sided chest and upper abdominal pain 8 to 10/ 10 worse with breathing or movement started just after the fall. No vomiting or diarrhea and no hemoptysis. Not dizzy or lightheaded. Pain radiates around to the back. No hematuria. REVIEW OF SYSTEMS: Eye: no change in vision ENT: no sore throat Cardiac: No syncope Pulmonary: HPI Abdomen: No vomiting or diarrhea Musculoskeletal: No neck pain Skin: No laceration Neuro: No weakness or numbness in extremities Constitutional: no fever : no urinary symptoms A comprehensive 10 point review of systems is otherwise negative aside from elements mentioned in the history of present illness. PAST MEDICAL HISTORY: Includes epiglottitis, right foot and right clavicle injury Social history: Smoker General Appearance: Alert and conversant, cooperative. Eyes: No scleral icterus. ENT, Mouth: Normal mucous membranes. Respiratory: Normal respiratory effort, breath sounds equal, lungs are clear to auscultation. Cardiovascular: Regular rate and rhythm. Gastrointestinal: Right upper quadrant abdominal tenderness. Neurological: Alert, face symmetric, normal motor and sensory in extremities. Ambulatory. Skin: Warm and dry, no rashes. No laceration. Musculoskeletal: No cervical thoracic or lumbar spine tenderness but exquisite tenderness to palpation in the mid axillary line on the right chest. Psychiatric: Not agitated. Emergency Department course/MDM: Plan for IV, Dilaudid 0.5 and Zofran 4 mg IV, lidocaine patch, i-STAT and CT scanning of the abdomen pelvis to evaluate for liver injury. 1313: Chest x-ray shows apical right pneumothorax reviewed with Dr. Gonzales, i- STAT creatinine 0.[address] abdomen pelvis ordered. Likely Trauma surgery admission 1414: Admission discussed, pain is better. Consult Dr. Glass. 1425: CT abdomen and pelvis is negative except for pneumothorax and rib fractures on the right. Seen by Dr. Glass and discharged per her orders to home after additional pain medication. Smoking Status: Current every day smoker Constitutional: Initial Vital Signs Temperature (C) 36.8 C 07/20/17 11:53 Heart Rate 100 07/20/17 11:53 Respiratory Rate 24 H 07/20/17 11:53 Blood Pressure 148/98 H 07/20/17 11:53 O2 Sat (%) 97 07/20/17 11:53 O2 Delivery Mode Room Air O2 (L/minute) 2 Allergies/Adverse Reactions: No Known Allergies Allergy (Verified 07/20/17 11:53) Home Medications: Medication Instructions Recorded oxyCODONE/APAP 5/325 [Percocet] 1 tab PO Q4-6PRN PRN #11 tab 07/20/17 Medical Decision Making - Diagnostics Imaging Results: Imaging Impressions Chest X-Ray 07/20/17 12:05 Impression: Nondisplaced fractures of the lateral aspects of the right seventh through 10th ribs, with small right apical pneumothorax. Results called to Dr. Pulido at 1:[address] 07/20/17 13:12 Impression: 1. Approximately 4 nondisplaced right-sided rib fractures with subcutaneous emphysema and small right pneumothorax. Results called to Dr. Pulido at 2:20 PM. Imaging: Discussed imaging studies w/ independent beauty consultant Radiologist Consult/Admit Bed Type: [place] [id number] - Data Points Laboratory Results: Laboratory Results 07/20/17 13:00 07/20/17 13:00 07/20/17 07/20/17 07/20/17 13:11 13:00 13:00 WBC 4.39 10^3/uL 10^3/uL (3.80-9.50) RBC 3.74 10^6/uL L 10^6/uL (4.40-6.38) Hgb 13.9 g/dL g/dL (13.7-17.5) POC Hgb 14.6 gm/dL gm/dL (13.7-17.5) Hct 39.7 % L % (40.0-51.0) POC Hct 43 % % (40-51) MCV 106.1 fL H fL (81.5-99.8) MCH 37.2 pg H pg (27.9-34.1) MCHC 35.0 g/dL g/dL (32.4-36.7) RDW 12.7 % % (11.5-15.2) Plt Count 234 10^3/uL 10^3/uL (150-400) MPV 9.1 fL fL (8.7-11.7) Neut % (Auto) 61.6 % % (39.3-74.2) Lymph % (Auto) 26.4 % % (15.0-45.0) Green % (Auto) 10.5 % % (4.5-13.0) Eos % (Auto) 0.5 % L % (0.6-7.6) Baso % (Auto) 0.5 % % (0.3-1.7) Nucleat RBC Rel Count 0.0 % % (0.0-0.2) Absolute Neuts (auto) 2.71 10^3/uL 10^3/uL (1.70-6.50) Absolute Lymphs (auto) 1.16 10^3/uL 10^3/uL (1.00-3.00) Absolute Monos (auto) 0.46 10^3/uL 10^3/uL (0.30-0.80) Absolute Eos (auto) 0.02 10^3/uL L 10^3/uL (0.03-0.40) Absolute Basos (auto) 0.02 10^3/uL 10^3/uL (0.02-0.10) Absolute Nucleated RBC 0.00 10^3/uL 10^3/uL (0-0.01) Immature Gran % 0.5 % % (0.0-1.1) Immature Gran # 0.02 10^3/uL 10^3/uL (0.00-0.10) POC Sodium 140 mEq/L mEq/L (135-145) Sodium 141 mEq/L mEq/L (135-145) POC Potassium 4.1 mEq/L mEq/L (3.3-5.0) Potassium 4.4 mEq/L mEq/L (3.3-5.0) POC Chloride 102 mEq/L mEq/L (97-110) Chloride 105 mEq/L mEq/L (97-110) Carbon Dioxide 25 mEq/l mEq/l (22-31) Anion Gap 11 mEq/L mEq/L (8-16) POC BUN 5 mg/dL L mg/dL (7-23) BUN 7 mg/dL mg/dL (7-23) Creatinine 0.5 mg/dL L mg/dL (0.7-1.3) POC Creatinine 0.5 mg/dL L mg/dL (0.7-1.3) Estimated GFR > 60 Glucose 103 mg/dL H mg/dL (70-100) POC Glucose 109 mg/dL H mg/dL (70-100) Calcium 9.9 mg/dL mg/dL (8.5-10.4) Medications Given: Discontinued Medications Hydromorphone HCl (Dilaudid) 0.5 mg IVP EDNOW ONE Stop: 07/20/17 12:51 Last Admin: 07/20/17 13:10 Dose: Not Given Hydromorphone HCl (Dilaudid) 1 mg IVP EDNOW ONE Stop: 07/20/17 13:09 Last Admin: 07/20/17 13:09 Dose: 1 mg Hydromorphone HCl (Dilaudid) 1 mg IVP EDNOW ONE Stop: 07/20/17 14:16 Last Admin: 07/20/17 14:20 Dose: 1 mg Sodium Chloride (Ns) 1,000 mls @ 0 mls/hr IV EDNOW ONE; Wide Open PRN Reason: Protocol Stop: 07/20/17 12:51 Last Admin: 07/20/17 13:08 Dose: 1,000 mls Ketorolac Tromethamine (Toradol) 30 mg IVP EDNOW ONE Stop: 07/20/17 14:49 Last Admin: 07/20/17 15:14 Dose: 30 mg Miscellaneous Medication (Icy Hot Lidocaine/Menthol 4%/1% Patch) 1 patch TD EDNOW ONE Stop: 07/20/17 12:51 Last Admin: 07/20/17 14:40 Dose: 1 patch Ondansetron HCl (Zofran) 4 mg IVP EDNOW ONE Stop: 07/20/17 12:51 Last Admin: 07/20/17 13:13 Dose: 4 mg Oxycodone/Acetaminophen (Percocet 5/325) 2 tab PO EDNOW ONE Stop: 07/20/17 14:45 Last Admin: 07/20/17 15:14 Dose: 2 tab Point of Care Test Results: 07/20/17 13:11 POC Sodium 140 POC Potassium 4.1 POC Chloride 102 POC BUN 5 L POC Creatinine 0.5 L POC Glucose 109 H Departure - Departure Disposition: Home, Routine, Self-Care Clinical Impression: RIGHT TRAUMATIC PNEUMOTHORAX Ribs, multiple fractures Qualifiers: Encounter type: initial encounter Fracture type: closed Laterality: right Qualified Code(s): S22.41XA - Multiple fractures of ribs, right side, initial encounter for closed fracture Condition: Good Instructions: Rib Fracture (ED) Additional Instructions: Take Percocet for pain as directed. It will make you drowsy--do not drive while taking this. You may also take Ibuprofen 600-800 mg, with food, three times a day for pain. Return to the emergency department if you have difficulty breathing or pain that you cannot control at home. Referrals: Vanessa Glass MD [Medical Doctor] - 3-5 days (You have an appointment with Dr. Glass at 11:45 am on July 23. Prior to your appointment at 10:45 am , please go to [facility] Imaging Department for a repeat chest x-ray. ) NONE *PRIMARY CARE P,. [Primary Care Provider] - As per Instructions Prescriptions: oxyCODONE/APAP 5/325 [Percocet] 1 tab PO Q4-6PRN PRN #11 tab PRN Reason: Pain
[2017-07-20] MEDS ORDERED: HYDROmorphONE/DILAUDID 1 MG/ML INJ ONE (13:04)
[2017-07-20] MEDS ORDERED: IOPAMIDOL (ISOVUE-300) 100 ML BTL ONE (13:18)
[2017-07-20 13:19] LABS: PLATELET COUNT 234 10^3/uL (150-400)
[2017-07-20] MEDS ORDERED: HYDROmorphONE/DILAUDID 1 MG/ML INJ IVP ONE (14:15)
[2017-07-20] MEDS ORDERED: OXYCODONE/APAP 5/325 TAB PO ONE (14:44)
[2017-07-20] MEDS ORDERED: KETOROLAC 30 MG/1 ML SDV IVP ONE (14:48)
--- NOTE | 2017-07-20 15:01 | GHP ---
[f rep st] HISTORY AND PHYSICAL DATE OF ADMISSION: 07/20/2017 CHIEF COMPLAINT: Rib fractures. HISTORY OF PRESENT ILLNESS: The patient is a 42-year-old man who fell on his porch and landed on a r ailing on his right side with this breaking his fall. He had increasing pain and presented to the ergency room. A chest x-ray was performed, which showed pneumothorax and he subsequently had a CT sc an performed showed rib fractures 7, 8, 9 and 10, pneumothorax without hemothorax. No liver lacerati on or abdominal abnormality. He is able to take deep breaths, but it is causing him pain. He feels okay when he is lying still. PAST MEDICAL HISTORY: None. SOCIAL HISTORY: He smokes 15 cigarettes a day. 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 He lives in [place]. FAMILY HISTORY: His grandfather had heart disease. REVIEW OF SYSTEMS: 10-point review of systems negative, except for right-sided rib pain and pain wit h inspiration. PHYSICAL EXAMINATION: VITAL SIGNS: 36.8, 70, 137/90, 19, 99% on 2 L. GENERAL: Pleasant, well-nour ished, well-groomed man lying on [facility]. HEENT: Normocephalic. No gross hearing deficits. Mucous membranes moist. Pupils equal and round. No scleral icterus. No midface instability. No otorrhea. No rhinorrhea. Poor dentition. LUNGS: Clear to auscultation bilaterally. No increased work of b reathing. CHEST: No bruising on lateral chest wall. CARDIAC: Regular rate. ABDOMEN: Bowel sound s present. Soft, nontender, nondistended. SKIN: Warm and dry. No obvious ecchymosis. NEURO: Rachael ssly intact. MUSCULOSKELETAL: 5/5 strength upper and lower extremities. IMPRESSION/PLAN: The patient is a 42-year-old status post fall with 4 rib fractures on the right wit h a small pneumothorax. This is about 48 hours old. I offered admission. At this time, he would li ke to try oral pain medication and see if he will be able to be discharged home. If not, I will admi t him. If he is discharged home, I will have him call the office on Friday for me to see him the ei ther Friday or with a repeat chest x-ray, I anticipate he will not be able to do any heav y labor for at least 2-4 weeks. I anticipate in about a week he may be off narcotics and be able to do supervising or paperwork. /[id number]/MODL
[2017-07-20 15:52] VITALS: BP 127/84
[2017-07-20] MEDS ORDERED: PATCH REMOVAL 1 EA PATCH TD SCH (21:00)
== END 2017-07-20 16:19 | disposition home or self-care (01) ==
LOC: UNDOADMOB 14:14
DX: S27.0XXA Traumatic pneumothorax, initial encounter (principal); S22.41XA Multiple fractures of ribs, right side, initial encounter for closed fracture; F17.200 Nicotine dependence, unspecified, uncomplicated; E86.9 Volume depletion, unspecified; W18.39XA Other fall on same level, initial encounter; Y99.8 Other external cause status
CPT/HCPCS: 82947-QW; 96374; J1170; J1885; J2405; Q9967

== ENCOUNTER → 2017-07-23 | Outpatient (CLI) | payer MEDICAID | LOC: FIMAGING 11:07 | PROVIDERS: ATTEND Surgery | DX: S22.31XD Fracture of one rib, right side, subsequent encounter for fracture with routine healing (principal); J93.9 Pneumothorax, unspecified ==